=== PATIENT | female | born 1960 | race Caucasian/White ===

== ENCOUNTER → 2017-11-04 10:42 | Outpatient (CLI) | payer BC, SELFPAY ==
--- NOTE | 2017-11-04 10:47 | RAD_ITS ---
STUDY: X-RAY - RIGHT SHOULDER REASON FOR EXAM: Female, 57 years old. Chronic right shoulder and neck pain TECHNIQUE: 4 view(s) of the shoulder. COMPARISON: None. FINDINGS: Normal glenohumeral articulation. Normal acromioclavicular joint. Normal acromion. Normal humeral head and visualized proximal humerus. The soft tissue structures are unremarkable. Normal visualized pulmonary apex. RAD/Shoulder min 2 Views IMPRESSION: Normal x-ray examination of the shoulder. Electronically Signed: Bertrand Douglas MD at 19:17 EDT , Service support ,
--- NOTE | 2017-11-04 10:59 | RAD_ITS ---
STUDY: X-RAY - CERVICAL SPINE REASON FOR EXAM: Female, 57 years old. Chronic right shoulder and neck pain TECHNIQUE: 5 view(s) of the cervical spine were obtained. COMPARISON: None FINDINGS: Normal anterior atlantoaxial articulation. Normal odontoid process. Normal cervical lordosis. There is a 3 mm anterolisthesis of C6 relative to C5. There is moderately severe narrowing of the C5-6 disc space. There is narrowing of the left C3-4 and C5-6 intervertebral foramina. The soft tissue structures are unremarkable. RAD/Cerv Spine 4 or 5 Views IMPRESSION: Degenerative changes as detailed above. Electronically Signed: Bertrand Douglas MD at 17:47 EDT , Service support ,
== END ==
PROVIDERS: Visit Provider Nurse Practitioner
DX: M25.511 Pain in right shoulder (principal); M43.6 Torticollis
CPT/HCPCS: 72050; 73030

== ENCOUNTER → 2021-01-10 | Outpatient (CLI) | payer BC, SELFPAY ==
[2021-01-10 15:17] VITALS: BMI 21.4
[2021-01-10 23:37] LABS: ALB/GLOB Ratio 1.2 RATIO (0.9-2.4); AST(SGOT) 18 U/L (15-37); Alanine Aminotransfer ALT/SGPT 30 U/L (13-56); Albumin, Serum 3.7 g/dL (3.2-5.0); Alkaline Phosphatase 58 U/L (45-117); Anion Gap 6 (5-15); BUN 11 mg/dL (7-18); BUN/Creat Ratio 15.5 RATIO (10-20); Calcium,Total 8.7 mg/dL (8.5-10.1); Chloride 104 mmol/L (98-107); Creatinine, Serum 0.71 mg/dL (0.55-1.02); EST Glomerular Filtration Rate 90 mL/min (>60); Est Glom Filt Rate - Afr Amer 109 mL/min (>60); Glucose 148 mg/dL (74-106); Potassium 3.3 mmol/L (3.5-5.1); Protein, Total 6.7 g/dL (6.4-8.2); Sodium Level 139 mmol/L (136-145); Thyroid Stim Hormone (TSH) 0.83 uIU/mL (0.358-3.74)
[2021-01-10 23:51] LABS: Absolute Lymphocyte Count 1.53 X10^3/uL (0.83-4.51); Absolute Neutrophil Count 3.2 X10^3/uL (2.0-7.7); Basophil# 0.03 X10^3/uL; Basophil% 0.6 % (0-1); Eosinophil# 0.03 X10^3/uL; Eosinophils% 0.6 % (0-5); Hematocrit 44.1 % (37-47); Hemoglobin 14.2 g/dL (12.0-15.0); Lymphocyte # 1.53 X10^3/ul (0.83-4.51); Mean Corp Hgb Conc 32.2 g/dL (32-36); Mean Corpuscular Hgb 30.5 pg (27.0-32.0); Mean Corpuscular Volume 94.6 fL (81-99); Mean Platelet Vol. 10.8 fl (6.2-12.0); Monocyte# 0.45 X10^3/uL; Monocyte% 8.5 % (0-10); NRBC Flagged by Analyzer 0 % (0-5); Neutrophil % 60.5 % (47-70); Platelet Count 212 K/mm3 (150-450); RBC Distribution Width CV 12.9 % (11.6-14.6); RBC Distribution Width SD 44.9 fl (35.1-43.9); Red Blood Count 4.66 M/mm3 (4.2-5.4); White Blood Count 5.3 K/mm3 (4.4-11.0)
[2021-01-13 14:08] LABS: Endomysial Antibody IgA Negative (Negative)
[2021-01-13 14:49] LABS: Immunoglobulin A 140 mg/dL (87-352); t-Transglutaminase IgA <2 U/mL (0-3)
== END | disposition home or self-care (01) ==
PROVIDERS: PCP Nurse Practitioner; Referring Provider Nurse Practitioner; Visit Provider Nurse Practitioner
DX: K58.9 Irritable bowel syndrome, unspecified (principal); R19.7 Diarrhea, unspecified
CPT/HCPCS: 80053; 82784; 83516; 84443; 85025; 86255

== ENCOUNTER → 2021-03-11 | Outpatient (CLI) | payer BC, SELFPAY ==
[2021-03-11 14:51] VITALS: BMI 21.8
[2021-03-11 21:39] LABS: Absolute Lymphocyte Count 1.71 X10^3/uL (0.83-4.51); Absolute Neutrophil Count 4.5 X10^3/uL (2.0-7.7); Basophil# 0.03 X10^3/uL; Basophil% 0.4 % (0-1); Eosinophil# 0.14 X10^3/uL; Hematocrit 45.8 % (37-47); Hemoglobin 15.1 g/dL (12.0-15.0); Lymphocyte # 1.71 X10^3/ul (0.83-4.51); Mean Corpuscular Hgb 30.9 pg (27.0-32.0); Mean Corpuscular Volume 93.7 fL (81-99); Mean Platelet Vol. 10.9 fl (6.2-12.0); Monocyte# 0.75 X10^3/uL; Monocyte% 10.5 % (0-10); NRBC Flagged by Analyzer 0 % (0-5); Neutrophil # 4.48 X10^3/uL (2.7-7.7); Neutrophil % 62.8 % (47-70); Platelet Count 201 K/mm3 (150-450); RBC Distribution Width CV 12.3 % (11.6-14.6); RBC Distribution Width SD 42.8 fl (35.1-43.9); Red Blood Count 4.89 M/mm3 (4.2-5.4); White Blood Count 7.1 K/mm3 (4.4-11.0)
[2021-03-11 22:07] LABS: ALB/GLOB Ratio 1.1 RATIO (0.9-2.4); AST(SGOT) 25 U/L (15-37); Alanine Aminotransfer ALT/SGPT 31 U/L (13-56); Albumin, Serum 3.9 g/dL (3.2-5.0); Alkaline Phosphatase 68 U/L (45-117); Anion Gap 6 (5-15); BUN 13 mg/dL (7-18); BUN/Creat Ratio 19.2 RATIO (10-20); Calcium,Total 9.4 mg/dL (8.5-10.1); Chloride 105 mmol/L (98-107); Creatinine, Serum 0.68 mg/dL (0.55-1.02); EST Glomerular Filtration Rate 95 mL/min (>60); Est Glom Filt Rate - Afr Amer 115 mL/min (>60); Globulin 3.4 g/dL (2.2-4.2); Glucose 88 mg/dL (74-106); Potassium 3.6 mmol/L (3.5-5.1); Protein, Total 7.3 g/dL (6.4-8.2); Sodium Level 139 mmol/L (136-145)
== END | disposition home or self-care (01) ==
PROVIDERS: PCP Nurse Practitioner; Visit Provider Nurse Practitioner
DX: R10.32 Left lower quadrant pain (principal); R19.7 Diarrhea, unspecified
CPT/HCPCS: 80053; 85025

== ENCOUNTER → 2021-03-12 13:31 | Outpatient (CLI) | payer BC, SELFPAY ==
[2021-03-11 14:51] VITALS: BMI 21.8
[2021-03-15 12:07] LABS: H. PYLORI STOOL AG Negative (Negative)
[2021-03-15 12:54] LABS: Giardia Lamblia, Stool EIA Negative (Negative)
== END ==
LOC: LAB 11:24 → LABSPEC 13:31
PROVIDERS: PCP Nurse Practitioner; Visit Provider Nurse Practitioner
DX: R10.13 Epigastric pain (principal); R10.32 Left lower quadrant pain; R11.0 Nausea; R19.7 Diarrhea, unspecified
CPT/HCPCS: 82274; 83630; 87329; 87506

== ENCOUNTER → 2021-03-18 08:48 | Outpatient (CLI) | payer BC, SELFPAY ==
[2021-03-11 14:51] VITALS: BMI 21.8
--- NOTE | 2021-03-18 08:52 | CT_ITS ---
STUDY: CT ABDOMEN AND PELVIS WITH CONTRAST REASON FOR EXAM: Female, 60 years old. Diverticulitis ,LLQ pain,Epigastric abd pain -- Approval #[id number] RADIATION DOSAGE (If Supplied By Facility): CTDIvol = ( 16.61 ) mGy, DLP = ( 462.05 ) mGycm TECHNIQUE: Transaxial images were obtained from the dome of the diaphragm to the symphysis pubis with oral contrast. Oral and amp; IV Readi-CAT and amp; 100mL Isovue-300 was administered. Sagittal and coronal images were reconstructed. Individualized dose optimization techniques were used for this CT. COMPARISON: None. FINDINGS: Bullous changes and emphysema in the lower lobes. The visualized portions of the heart are within normal limits. There is decreased attenuation of the liver consistent with steatosis. Multiple small hepatic cysts. The largest cyst is in the left lobe of liver and measures 1.2 cm. Normal gallbladder and extrahepatic biliary system. Normal spleen. Normal pancreas. Normal bilateral adrenal glands. Normal right kidney. Normal left kidney. Normal visualized stomach. Normal small intestine. There are scattered colonic diverticula consistent with diverticulosis. There are surgical clips in the region of the appendix consistent with a prior appendectomy. There is scattered atherosclerotic calcification of the abdominal aorta, without a demonstrated aneurysm. Normal inferior vena cava. Normal retroperitoneum. Normal urinary bladder. Normal abdominal wall. Normal osseous structures. CT/Abdomen/Pelvis W IV Cont ONLY IMPRESSION: Scattered sigmoid diverticula. Electronically Signed: Arvind Munoz MD at 14:27 EDT , Service support ,
== END ==
PROVIDERS: PCP Nurse Practitioner; Referring Provider Nurse Practitioner; Visit Provider Nurse Practitioner
DX: K57.92 Diverticulitis of intestine, part unspecified, without perforation or abscess without bleeding (principal); R10.13 Epigastric pain; R10.32 Left lower quadrant pain
CPT/HCPCS: 74177; Q9967

== ENCOUNTER 2021-04-11 06:53 | Day surgery (SDC) | payer BC, SELFPAY ==
[2021-03-19 09:09] VITALS: BMI 20.4
[2021-04-11 07:24] VITALS: BP 136/87; PULSE 91; RESP 16; TEMP 37.1; O2SAT 99; BMI 21.7
[2021-04-11] MEDS: Lactated Ringers 1,000 ML 100 ML IV (07:28)
--- NOTE | 2021-04-11 07:54 | HP.PCM_ITS ---
History and Physical Date of Admission: 04/11/21 Intake Vital Signs 03/19/21 09:02 03/19/21 09:09 Height 5 ft 4 in Weight: 119 lb BMI 21.8 20.4 BP 120/83 H Blood Pressure Location Rt brachial Position Sitting Respiration 16 Intake Visit Reasons: Gerd/Abdominal Pain & Diarrhea Chief Complaint: diarrhea and abd pain Human Capital Analyst Required: No Is patient in pain?: Yes (RUQ abd) Allergies etodolac Allergy (Verified 03/19/21 09:10) Hives ANOTHER ONE I CAN'T REMEMBER Allergy (Uncoded 03/19/21 09:10) Hives Medications duloxetine 60 mg capsule,delayed release 60 mg PO DAILY #90 cap 12/03/20 [Rx Confirmed 03/19/21] dicyclomine 20 mg tablet 20 mg PO TID #90 tab 01/10/21 [Rx Confirmed 03/19/21] lansoprazole 30 mg capsule,delayed release 30 mg PO DAILY #90 cap 01/29/21 [Rx Confirmed 03/19/21] ciprofloxacin HCl 500 mg tablet 500 mg PO BID #20 tab 03/11/21 [Rx Confirmed 03/19/21] metronidazole 250 mg tablet 250 mg PO TID 10 Days #30 tab 03/11/21 [Rx Confirmed 03/19/21] promethazine 12.5 mg tablet 12.5 mg PO Q4H PRN #45 tab 03/11/21 [Rx Confirmed 03/19/21] methylprednisolone 4 mg tablets in a dose pack See Rx Instructions PO PER PKG DIR #21 tab 03/19/21 [Rx Confirmed 03/19/21] PFSH Medical History Bronchitis Depression Fibromyalgia Fx. left wrist IBS (irritable bowel syndrome) Seasonal allergies Family History (Updated 03/19/21 @ 09:08 by Yuli Gonzalez) Mother Hypertension Father Hypertension Colon cancer Brother Colon cancer Other Respiratory disease Social History (Updated 03/19/21 @ 09:08 by Yuli Gonzalez) Smoking Status: Current every day smoker alcohol intake: never HPI HPI HPI: SARIAH CODY, is a 60 F who presents to the office today for diarrhea and abdominal pain. The patient has been having over a week of diarrhea that did not respond to Cipro and Flagyl. The patient had a CT scan which was essentially normal. The patient was positive fecal occult blood. The patient reports that she does have a family history of colon cancer in her brother and her father. Patient reports pain in the epigastric and right upper quadrant. ROS General General: Yes weight change and fatigue; No appetite, colon cancer, breast cancer or weakness HEENT HEENT: No difficulty swallowing, eye injury, eye surgery, swollen glands or hoarseness Endo Endocrine: No thyroid disease, diabetes mellitus, thyroid cancer, Hair loss, heat intolerance or cold intolerance Skin Skin: No rash or changing moles Breast Breast: No left breast lump, right breast lump, nipple discharge, breast pain, abnormal mammogram, abnormal US or breast enlargement Musc Musculoskeletal: No back problems, arthritis, rheumatoid arthritis, gout or joint pain Cardio Cardiovascular: No murmur, pacemaker, heart disease, atrial fibrillation, high blood pressure, heart attack, heart stent, palpitations, shortness of breat with exertion or chest pain Psych Psychiatric: Yes depression and anxiety; No hearing voices Resp Respiratory: No shortness of breath, No sleep apnea, No cough, No COPD, No asthma, No emphysema and No wheezing Gastro Gastrointestinal: Yes abdominal pain, Yes nausea or vomiting, Yes diarrhea, No constipation, Yes blood in stool, Yes acid reflux, No hemorrhoids, No ulcers, No gallbladder problem and Yes black,tarry stools Gopi Hematologic: No blood thinners, No blood disorders, No bleeding, No anemia and No blood clots Neuro Neurologic: No system reviewed and no additional complaints, except as documented, No as per HPI, No abnormal gait, No abnormal hearing, No abnormal movements, No abnormal speech, No behavioral changes, No burning sensations, No confusion, No convulsions, No disequilibrium, No dizziness, No localized weakness, No frequent falls, No headache(s), No lack of coordination, No loss of vision, No memory loss, No numbness, No other visual disturbances, No radicular pain, No restless legs, No sensory deficit, No syncope, No tingling, No tremor(s), No weakness and No other Exam Const General: cooperative Orientation: alert and oriented x3 HENMT Head: normal to inspection Neck Neck: normal visual inspection and full ROM Chest Chest palpation & inspection: normal inspection of the chest Resp Effort & Inspection: normal respiratory effort Auscultation: clear to auscultation bilaterally Cardio Rate: regular rate Rhythm: regular rhythm GI Inspection: non-distended Palpation: soft and tender in the RUQ Skin General: no rashes or lesions noted Neuro General: patient alert and patient oriented x3 Extrem General: full ROM Psych Appearance: grossly normal Mental Status: mental status grossly normal Assessment and Plan Assessment and Plan (1) Diarrhea: Status: Acute Qualifiers: Diarrhea type: presumed infectious Qualified Code(s): R19.7 - Diarrhea, unspecified (2) Epigastric pain: Status: Acute (3) Positive fecal occult blood test: Status: Acute Orders: Orders: Colonoscopy Today R19.7 EGD Today R10.13, R19.5 Plan - Dr. Shadi Downs MD: Patient reports that she has been having diarrhea for over a week and this did not resolve on Cipro and Flagyl. CT was normal. The patient may be having microscopic colitis and the patient does have right upper quadrant pain and she is on a PPI. She also has a family history of colon cancer. I will perform an EGD and colonoscopy as the patient has also had positive fecal occult blood test. I will order her short Medrol Dosepak to see if steroids help at all and I will perform a colonoscopy with random biopsies of the colon to check for microscopic colitis. I explained endoscopy in detail to the patient. I explained the risks including but not limited to stroke or heart attack with anesthesia, perforation of the GI tract, bleeding, infection. I explained that any of these could necessitate further emergency surgery. The patient understands and all questions were answered sufficiently. The patient wishes to proceed with procedure. Shadi Downs MD Pager: [facility] [address] [place] [address] [address] [place] [address] Office: I have re-examined the patient. There are no clinical changes since date of exam.
--- NOTE | 2021-04-11 08:00 | COLBX_PTH ---
PATIENT: SARIAH CODY LOC: EN U#:[id number] AGE/SX: 60/F ROOM: RE04/11/[address]: Dr. Shadi Downs MD : 1960 BED: DIS: 04/11/2021 SPEC #: [id number] RECD: 04/11/21 10:50 STATUS: ROSA JUMA #: [id number] BULMARO: 04/11/21 08:[address]: Shadi Downs DEPT: SURGICAL PATHOLOGY RECD BY: Chanell Rivera ENTERED: 04/11/21 11:05 SP TYPE: COLON BX OTHR DR: Thelma Simmons, BOX CHIPPER-C Tissues: A - COLON BIOPSY B - Rectum, NOS Procedures: Surgery Specimen Level IV HEADER OPERATION: [place] [place] DIAGNOSIS: Diarrhea, epigastric pain, positive fecal occult blood test TISSUE SUBMITTED: A ? Random colon biopsies, B ? Rectal polyp MICROSCOPIC DIAGNOSIS A. Random colon biopsy: Lymphocytic colitis. See Comment. B. Rectal polyp, biopsy: Tubular adenoma. COMMENT A. Trichrome stain with matched control does not reveal a thickened basal plate. MICROSCOPIC DESCRIPTION Slides are reviewed. GROSS DESCRIPTION A - Received in fixative is one container labeled with the patient's name and designated random colon biopsy. The specimen consists of multiple irregular fragments of light bruno soft tissue that in aggregate measure 2 x 0.7 x 0.1 cm. The specimen is totally submitted in one cassette. B -Received in fixative is one container labeled with the patient's name and designated rectal polyp. The specimen consists of multiple irregular fragments of light bruno soft tissue that in aggregate measure 1.5 x 1 x 0.3 cm. The specimen is totally submitted in one cassette. / AM:daphney 04/11/2021 TC:5 CPT: 94593 x2, 88200
[2021-04-11 08:35] VITALS: BP 111/78; BP 136/87; PULSE 78; RESP 14; TEMP 36.3; O2SAT 99
--- NOTE | 2021-04-11 08:36 | OP.CCLET_ITS ---
04/11/2021 Thelma Simmons NP [facility] [address] [address] Re : Upper GI endoscopy procedure for Denia Bhagat Dear Ms. Simmons This procedure was performed on Sunday, April 11, 2021. My impressions and recommendations are as follows: Impressions : - Normal esophagus. - Normal stomach. - Normal examined duodenum. - No specimens collected. Recommendations : - Discharge patient to home. - Resume previous diet. - Continue present medications. My findings are described in the full procedure note, which is enclosed. If I can be of further assistance, please feel free to contact me at Doctor phone number(s): , Work: . Sincerely, Shadi Downs MD 04/11/2021 8:35:04 AM This report has been signed electronically.
--- NOTE | 2021-04-11 08:36 | OP.EGD_ITS ---
Patient Name: Denia Bhagat Procedure Date: 04/11/2021 8:00 AM Date of : 1960 Age: 60 Procedure: Upper GI endoscopy Indications: Occult blood in stool Providers: Shadi Downs MD Medicines: Monitored Anesthesia Care Patient Profile: This is a 60 year old female. Refer to note in patient chart for documentation of history and physical. Complications: No immediate complications. Procedure: Pre-Anesthesia Assessment: - Prior to the procedure, a History and Physical was performed, and patient medications and allergies were reviewed. The patient's tolerance of previous anesthesia was also reviewed. The risks and benefits of the procedure and the sedation options and risks were discussed with the patient. All questions were answered, and informed consent was obtained. Prior Anticoagulants: The patient has taken no previous anticoagulant or antiplatelet agents. After reviewing the risks and benefits, the patient was deemed in satisfactory condition to undergo the procedure. After obtaining informed consent, the endoscope was passed under direct vision. Throughout the procedure, the patient's blood pressure, pulse, and oxygen saturations were monitored continuously. The gastroscope was introduced through the mouth, and advanced to the third part of duodenum. The upper GI endoscopy was accomplished without difficulty. The patient tolerated the procedure well. Scope In: 8:10:54 AM Scope Out: 8:12:13 AM Total Procedure Duration Time 0 hours 1 minute 19 seconds Findings: The esophagus was normal. The stomach was normal. The examined duodenum was normal. Impression: - Normal esophagus. - Normal stomach. - Normal examined duodenum. - No specimens collected. Recommendation: - Discharge patient to home. - Resume previous diet. - Continue present medications. Procedure Code(s): --- Professional --- 47570, Esophagogastroduodenoscopy, flexible, transoral; diagnostic, including collection of specimen(s) by brushing or washing, when performed (separate procedure) Diagnosis Code(s): --- Professional --- R19.5, Other fecal abnormalities CPT copyright 2017 [employer]. All rights reserved. The codes documented in this report are preliminary and upon reclamation supervisor review may be revised to meet current compliance requirements. Shadi Downs MD 04/11/2021 8:35:04 AM This report has been signed electronically. Number of Addenda: 0 Note Initiated On: 04/11/2021 8:00 AM
--- NOTE | 2021-04-11 08:37 | OP.COLON_ITS ---
Patient Name: Denia Bhagat Procedure Date: 04/11/2021 8:13 AM Date of : 1960 Age: 60 Procedure: Colonoscopy Indications: Chronic diarrhea, Heme positive stool Providers: Shadi Downs MD Medicines: Monitored Anesthesia Care Patient Profile: This is a 60 year old female. Refer to note in patient chart for documentation of history and physical. Last Colonoscopy: date unknown. Complications: No immediate complications. Estimated blood loss: Minimal. Procedure: Pre-Anesthesia Assessment: - Prior to the procedure, a History and Physical was performed, and patient medications and allergies were reviewed. The patient's tolerance of previous anesthesia was also reviewed. The risks and benefits of the procedure and the sedation options and risks were discussed with the patient. All questions were answered, and informed consent was obtained. Prior Anticoagulants: The patient has taken no previous anticoagulant or antiplatelet agents. After reviewing the risks and benefits, the patient was deemed in satisfactory condition to undergo the procedure. After I obtained informed consent, the scope was passed under direct vision. Throughout the procedure, the patient's blood pressure, pulse, and oxygen saturations were monitored continuously. The pediatric colonoscope was introduced through the anus and advanced to the cecum, identified by appendiceal orifice and ileocecal valve. The colonoscopy was performed without difficulty. The patient tolerated the procedure well. The quality of the bowel preparation was good. Scope In: 8:15:26 AM Scope Withdrawal Time 0 hours 6 minutes 5 seconds Scope Out: 8:30:03 AM Total Procedure Duration Time 0 hours 14 minutes 37 seconds Findings: A polyp was found in the rectum. The polyp was removed with a hot snare. Resection and retrieval were complete. The entire examined colon appeared normal on direct and retroflexion views. Biopsies for histology were taken with a cold forceps from the entire colon for evaluation of microscopic colitis. Impression: - One polyp in the rectum, removed with a hot snare. Resected and retrieved. - The entire examined colon is normal on direct and retroflexion views. - Biopsies were taken with a cold forceps from the entire colon for evaluation of microscopic colitis. Recommendation: - Discharge patient to home. - Resume previous diet. - Continue present medications. - Await pathology results. - Repeat colonoscopy in 5 years for surveillance based on pathology results. Procedure Code(s): --- Professional --- 53231, Colonoscopy, flexible; with removal of tumor(s), polyp(s), or other lesion(s) by snare technique 15388, 59, Colonoscopy, flexible; with biopsy, single or multiple Diagnosis Code(s): --- Professional --- K62.1, Rectal polyp K52.9, Noninfective gastroenteritis and colitis, unspecified R19.5, Other fecal abnormalities CPT copyright 2017 [employer]. All rights reserved. The codes documented in this report are preliminary and upon tire center manager review may be revised to meet current compliance requirements. Shadi Downs MD 04/11/2021 8:37:22 AM This report has been signed electronically. Number of Addenda: 0 Note Initiated On: 04/11/2021 8:13 AM
--- NOTE | 2021-04-11 08:38 | OP.CCLET_ITS ---
04/11/2021 Thelma Simmons NP [facility] [address] [place] [id number] Re : Colonoscopy procedure for Denia Bhagat Dear Ms. Simmons This procedure was performed on Sunday, April 11, 2021. My impressions and recommendations are as follows: Impressions : - One polyp in the rectum, removed with a hot snare. Resected and retrieved. - The entire examined colon is normal on direct and retroflexion views. - Biopsies were taken with a cold forceps from the entire colon for evaluation of microscopic colitis. Recommendations : - Discharge patient to home. - Resume previous diet. - Continue present medications. - Await pathology results. - Repeat colonoscopy in 5 years for surveillance based on pathology results. My findings are described in the full procedure note, which is enclosed. If I can be of further assistance, please feel free to contact me at Doctor phone number(s): , Work: . Sincerely, Shadi Downs MD 04/11/2021 8:37:22 AM This report has been signed electronically.
[2021-04-11 08:40] VITALS: BP 116/73; BP 136/87; PULSE 70; RESP 16; O2SAT 100
[2021-04-11 08:45] VITALS: BP 116/73; BP 136/87; PULSE 73; RESP 16; O2SAT 98
[2021-04-11 08:50] VITALS: BP 118/80; BP 136/87; PULSE 72; RESP 16; TEMP 36.2; O2SAT 100
[2021-04-11 09:00] VITALS: BP 136/87
== END 2021-04-11 09:07 ==
LOC: EN 06:54 → AC 06:57
PROVIDERS: PCP Nurse Practitioner; Referring Provider Nurse Practitioner; Visit Provider Surgery
PROC: 0DJD8ZZ Inspection of Lower Intestinal Tract, Via Natural or Artificial Opening Endoscopic (ICD-10-PCS; CPT 45378; principal; 2021-04-11 07:55)
DX: K62.1 Rectal polyp (principal); K52.9 Noninfective gastroenteritis and colitis, unspecified; R19.5 Other fecal abnormalities; Z80.0 Family history of malignant neoplasm of digestive organs; F17.200 Nicotine dependence, unspecified, uncomplicated; K21.9 Gastro-esophageal reflux disease without esophagitis
CPT/HCPCS: 43235; 45380; 45385; 88305; J7120; J2405

== ENCOUNTER 2021-11-24 21:18 | Outpatient (CLI) | payer BC, SELFPAY | END 2021-11-24 23:59 | disposition home or self-care (01) | PROVIDERS: PCP Nurse Practitioner; Visit Provider Nurse Practitioner | DX: N30.90 Cystitis, unspecified without hematuria (principal) | CPT/HCPCS: 87077; 87086; 87088; 87186 ==

== ENCOUNTER 2021-12-31 08:24 | Emergency (ER) | payer BC, SELFPAY ==
[2021-12-31 08:25] VITALS: BP 155/90; PULSE 126; RESP 18; TEMP 36.4; O2SAT 98
--- NOTE | 2021-12-31 08:46 | RAD_ITS ---
INDICATION: Cough, shortness of breath, COVID-positive December 17 EXAMINATION/TECHNIQUE: X-RAY - XR Chest 2 Views COMPARISON: None. FINDINGS: Support devices: None. There are some faint streaky opacities in the bilateral lower lobes, predominantly in the periphery. No focal consolidations, sizable pleural effusion, or sizable pneumothorax. Cardiomediastinal silhouette is within normal limits. No acute findings in the bones or soft tissues. RAD/Chest PA and Lateral IMPRESSION: Faint streaky opacities in the bilateral lower lobes, predominantly in the peripheries can be seen with atelectasis or pneumonia, such as Covid pneumonia. Electronically Signed: Kyle Gerard, at 9:47 EDT ,
--- NOTE | 2021-12-31 08:46 | EX.ED.DYSGE1 ---
HPI History of Present Illness Chief Complaint: General Illness Detail of Chief Complaint: Not feeling well Informant: patient Onset/Context/Timing Onset: Weeks (Approximately 2 weeks) Context: Sudden Onset Timing: Continuous Quality: Malaise, not normal self and burning chest pain with breathing Current Severity: Mild Maximum Severity: Moderate Worsened by: Nothing Relieved by: Nothing Associated Symptoms Associated Symptoms: Not feeling well Narrative Narrative: Patient is a 61-year-old woman who is a smoker. She states she has smoked very little in the last couple of days. She presents because she does not feel well and feels she should feel much better since she was diagnosed with COVID 2 weeks ago. She denies documented fever. She does report intermittent chills. She does endorse intermittent aches. She denies headache, visual, ocular auditory symptoms. She does report mild nasal congestion. She denies loss of taste or smell. She denies dyspnea on exertion, orthopnea or PND. The chest discomfort was with breathing. It is not pleuritic. Her cough is essentially nonproductive. She has no GI symptoms. She has no urologic symptoms. She has no neurologic symptoms. She denies history of PE or DVT. She denies leg pain, swelling or discoloration. Prior similar symptoms: Yes Recent Illness/Hospitalization: Yes (Positive COVID test December 17, 2021) PFSH PFSH Medical History Bronchitis Colitis Depression Easy bruising Fibromyalgia Fx. left wrist Gastric reflux History of GI bleed History of IBS IBS (irritable bowel syndrome) Restless legs Seasonal allergies Smoker Home Medications dicyclomine 20 mg PO TID PRN PRN 04/08/21 [History Last Taken Unknown] fexofenadine [No] 180 mg PO DAILY 04/08/21 [History Last Taken Unknown] lansoprazole 30 mg PO DAILY 04/08/21 [History Last Taken 04/11/21 05:45] mesalamine 500 mg capsule,controlled release 1,000 mg PO TID #180 cap 04/18/21 [Rx Last Taken Unknown] duloxetine 60 mg capsule,delayed release 60 mg PO DAILY #30 cap 11/24/21 [Rx Last Taken Unknown] clarithromycin 500 mg tablet 500 mg PO BID #20 tab 12/29/21 [Rx Last Taken Unknown] Allergy/AdvReac Type Severity Reaction Status Date / Time etodolac Allergy Hives Verified 12/31/21 08:25 ANOTHER ONE I CAN'T Allergy Hives Uncoded 12/31/21 08:25 REMEMBER Family History Mother Hypertension Father Hypertension Colon cancer Brother Colon cancer Other Respiratory disease Surgical History (Reviewed 11/25/21 @ 10:51 by Thelma Simmons CABLE INSTALLER REPAIRER HELPER, CABLE INSTALLER REPAIRER HELPER-C) History of appendectomy History of colonoscopy History of endometrial ablation Social History (Updated 12/31/21 @ 08:[address] Cesar Moreno MD) household members: none Smoking Status: Current every day smoker tobacco type: cigarettes alcohol intake: never substance use type: does not use ROS ROS ED Constitutional Constitutional ED: Reports chills, fever(s) and subjective; Denies sweats or weight loss Eyes Eyes: Denies blurry vision, change in vision or diplopia ENT ENT ED: Reports rhinorrhea; Denies ear pain or sore throat Cardiovascular Cardiovascular: Reports chest pain; Denies orthopnea, palpitations, paroxysmal nocturnal dyspnea or racing heartbeat Respiratory/Chest Respiratory/Chest: Reports cough and sputum; Denies dyspnea, dyspnea on exertion, orthopnea or paroxysmal nocturnal dyspnea Gastrointestinal Gastrointestinal: Denies abdominal pain, diarrhea, melena, nausea or vomiting Genitourinary Genitourinary ED: Denies dysuria, hematuria or urinary frequency Musculoskeletal Musculoskeletal: Reports arthralgias and myalgias; Denies back pain or neck pain Integumentary Denies rash Neurologic Neurologic: Reports weakness; Denies headache(s) or paresthesias Endocrine Endocrinology: Denies polydipsia, polyphagia or polyuria Hematologic/Lymphatic Hematologic/Lymphatic: Denies anemia, easy bleeding or easy bruising EXAM Physical Exam Const Vital Signs: 12/31/21 08:25 12/31/21 08:58 Temperature 97.6 F L Temperature Source Temporal Pulse Rate 126 H Respiratory Rate 18 Respiratory Pattern Normal Blood Pressure 155/90 H Blood Pressure Mean 111 Pulse Ox 98 Oxygen Delivery Method Room Air Positive well nourished and well developed General Appearance ED: well developed and NAD; Negative for cyanotic, diaphoretic or pallor HEENT Reports TM's clear and moist mucous membranes HEENT Narrative: Nares patent. No drainage noted. Uvula is midline. There is no erythema or exudate. Negative for trauma or tenderness Tympanic Membrane ED: Yes TM's clear Eyes PERRL and EOMs intact bilaterally General Eye ED: Negative for pale conjunctiva or scleral icterus Neck no lymphadenopathy, supple and no JVD Neck Narrative: Trachea is midline. There is no in-store expiratory stridor. Resp normal respiratory effort and No clear to auscultation bilaterally Effort and Inspection: Negative for retractions or pain with movement Auscultation: rales bilateral base; Negative for rhonchi, wheezes or diminished lung sounds Cardio regular rhythm, S1 normal heart sound, S2 normal heart sound and no murmurs Rate: tachycardic GI normal to inspection, nondistended, normoactive bowel sounds, non-tender and non-distended Palpation: soft Back/Spine no CVA tenderness Cervical Spine: Negative for cervical spine tenderness Thoracic Spine / Upper Back: Negative for thoracic spinal tenderness or paraspinal muscle tenderness Lumbar Spine / Lower Back: Negative for lumbar spinal tenderness Extremity normal to inspection Extremity Narrative: There is no asymmetry, swelling, discoloration, leg vein distention, palpable cords or tenderness along the distribution of the deep venous system. General Extremety ED: Negative for edema or tenderness General Extremity: Negative for edema Neuro oriented x3, CN's II-XII intact bilaterally and no sensory deficits noted Sensorium / Orientation: alert Motor Exam: strength 5/5 throughout Psych mental status grossly normal Skin no rashes or lesions noted and no wounds General Skin Exam: Negative for jaundice or pallor MDM MDM MDM Narrative Medical decision making narrative: Patient presents with symptoms consistent with COVID infection. Since she has bilateral rales will obtain chest x-ray to evaluate for infiltrate. CBC to rule out anemia and determine white count. BMP to assess electrolytes and renal function Lab Data Attestation: I reviewed the patient's lab results. Lab results narrative: Patient's hemoglobin is higher than baseline. This may represent polycythemia vera versus dehydration. Suspect the later since her BUN to creatinine ratio is elevated. Labs: Laboratory Results - last 24 hr 12/31/21 12/31/21 08:50 08:50 WBC 5.8 RBC 5.26 Hgb 16.0 H Hct 48.1 H MCV 91.4 MCH 30.4 MCHC 33.3 RDW Std Deviation 41.1 RDW Coeff of Alicia 12.4 Plt Count 242 MPV 10.3 Immature Gran % (Auto) 1.000 H Neut % (Auto) 57.6 Lymph % (Auto) 27.3 George % (Auto) 12.0 H Eos % (Auto) 1.9 Baso % (Auto) 0.2 Absolute Neuts (auto) 3.3 Absolute Lymphs (auto) 1.57 Nucleated RBC % 0 Sodium 139 Potassium 3.2 L Chloride 103 Carbon Dioxide 32.0 Anion Gap 4 L BUN 18 Creatinine 0.71 Estim Creat Clear Calc 3.05 Est GFR (MDRD) Af Amer 109 Est GFR (MDRD) Non-Af 90 BUN/Creatinine Ratio 25.5 H Glucose 118 H Calcium 9.1 Radiography Chest X-Ray - ED: 2 View and Read by ED Physician (And independently interpreted by me at 0911. Hyperaeration. Chronic changes. Cardiac silhouette and size normal. Perihilar region unremarkable. Osseous structures are unremarkable. There is no evidence of pneumothorax.) Discharge Plan Triage Chief Complaint: General Illness ED Provider: Cesar Moreno Dx/Rx/DC Orders Clinical Impression: COVID-19 virus infection, Acute prerenal azotemia Instructions: Coronavirus Disease 2019 (COVID-19): Overview, Coronavirus Disease 2019 (COVID-19): Caring for Yourself or Others Prescriptions: No Action duloxetine 60 mg capsule,delayed release(DR/EC) 60 mg PO DAILY Qty: 30 RF: 12 fexofenadine [No] 180 mg Tablet 180 mg PO DAILY RF: 0 dicyclomine 20 mg tablet 20 mg PO TID PRN PRN (Reason: Diarrhea) RF: 0 lansoprazole 30 mg capsule,delayed release(DR/EC) 30 mg PO DAILY RF: 0 mesalamine 500 mg capsule, extended release 1,000 mg PO TID Qty: 180 RF: 1 clarithromycin 500 mg tablet 500 mg PO BID Qty: 20 RF: 0 Primary Care Provider: Thelma Simmons NP Referrals: Thelma Simmons NP, CABLE INSTALLER REPAIRER HELPER-C [Primary Care Provider] - 10-14 Days if not better Disposition Disposition: Home, Self Care
[2021-12-31 09:01] LABS: Absolute Lymphocyte Count 1.57 X10^3/uL (0.83-4.51); Absolute Neutrophil Count 3.3 X10^3/uL (2.0-7.7); Basophil# 0.01 X10^3/uL; Basophil% 0.2 % (0-1); Eosinophil# 0.11 X10^3/uL; Eosinophils% 1.9 % (0-5); Hematocrit 48.1 % (37-47); Lymphocyte # 1.57 X10^3/ul (0.83-4.51); Lymphocyte % 27.3 % (19-41); Mean Corp Hgb Conc 33.3 g/dL (32-36); Mean Corpuscular Hgb 30.4 pg (27.0-32.0); Mean Corpuscular Volume 91.4 fL (81-99); Mean Platelet Vol. 10.3 fl (6.2-12.0); Monocyte# 0.69 X10^3/uL; NRBC Flagged by Analyzer 0 % (0-5); Neutrophil # 3.32 X10^3/uL (2.7-7.7); Neutrophil % 57.6 % (47-70); Platelet Count 242 K/mm3 (150-450); RBC Distribution Width CV 12.4 % (11.6-14.6); RBC Distribution Width SD 41.1 fl (35.1-43.9); Red Blood Count 5.26 M/mm3 (4.2-5.4); White Blood Count 5.8 K/mm3 (4.4-11.0)
[2021-12-31 09:10] LABS: Anion Gap 4 (5-15); BUN 18 mg/dL (7-18); BUN/Creat Ratio 25.5 RATIO (10-20); Calcium,Total 9.1 mg/dL (8.5-10.1); Chloride 103 mmol/L (98-107); Creatinine, Serum 0.71 mg/dL (0.55-1.02); EST Glomerular Filtration Rate 90 mL/min (>60); Est Glom Filt Rate - Afr Amer 109 mL/min (>60); Estimated Creatinine Clearance 3.05 ml/min; Glucose 118 mg/dL (74-106); Potassium 3.2 mmol/L (3.5-5.1); Sodium Level 139 mmol/L (136-145)
[2021-12-31 09:20] VITALS: BP 138/58; PULSE 75; RESP 16; O2SAT 97
== END 2021-12-31 09:21 | disposition home or self-care (01) ==
PROVIDERS: Emergency Provider Emergency Medicine; PCP Nurse Practitioner; Visit Provider Emergency Medicine
DX: U07.1 COVID-19 (principal); R79.89 Other specified abnormal findings of blood chemistry; M79.7 Fibromyalgia; K21.9 Gastro-esophageal reflux disease without esophagitis; F17.210 Nicotine dependence, cigarettes, uncomplicated; Z79.899 Other long term (current) drug therapy
CPT/HCPCS: 71046; 80048; 85025; 99282

== ENCOUNTER → 2022-11-24 | Outpatient (CLI) | payer BC, SELFPAY ==
[2022-11-24 21:18] LABS: Absolute Lymphocyte Count 0.98 X10^3/uL (0.83-4.51); Absolute Neutrophil Count 1.6 X10^3/uL (2.0-7.7); Basophil# 0.01 X10^3/uL; Basophil% 0.3 % (0-1); Eosinophil# 0.05 X10^3/uL; Eosinophils% 1.6 % (0-5); Hematocrit 45.1 % (37-47); Hemoglobin 14.8 g/dL (12.0-15.0); Lymphocyte # 0.98 X10^3/ul (0.83-4.51); Mean Corp Hgb Conc 32.8 g/dL (32-36); Mean Corpuscular Hgb 30.2 pg (27.0-32.0); Mean Platelet Vol. 10.7 fl (6.2-12.0); Monocyte# 0.42 X10^3/uL; Monocyte% 13.7 % (0-10); NRBC Flagged by Analyzer 0 % (0-5); Neutrophil % 52.4 % (47-70); Platelet Count 186 K/mm3 (150-450); RBC Distribution Width CV 12.6 % (11.6-14.6); RBC Distribution Width SD 42.6 fl (35.1-43.9); White Blood Count 3.1 K/mm3 (4.4-11.0)
[2022-11-24 21:32] LABS: ALB/GLOB Ratio 1.1 RATIO (0.9-2.4); AST(SGOT) 16 U/L (15-37); Alanine Aminotransfer ALT/SGPT 21 U/L (13-56); Albumin, Serum 3.5 g/dL (3.2-5.0); Alkaline Phosphatase 70 U/L (45-117); Anion Gap 1 (5-15); BUN 6 mg/dL (7-18); BUN/Creat Ratio 9.7 RATIO (10-20); Calcium,Total 8.8 mg/dL (8.5-10.1); Chloride 109 mmol/L (98-107); Creatinine, Serum 0.62 mg/dL (0.55-1.02); EST Glomerular Filtration Rate 105 mL/min (>60); Est Glom Filt Rate - Afr Amer 127 mL/min (>60); Globulin 3.1 g/dL (2.2-4.2); Glucose 99 mg/dL (74-106); Potassium 3.4 mmol/L (3.5-5.1); Protein, Total 6.6 g/dL (6.4-8.2); Sodium Level 139 mmol/L (136-145)
== END | disposition home or self-care (01) ==
PROVIDERS: PCP Nurse Practitioner; Visit Provider Nurse Practitioner
DX: J06.9 Acute upper respiratory infection, unspecified (principal); R05.9 Cough, unspecified; U09.9 Post COVID-19 condition, unspecified
CPT/HCPCS: 80053; 85025

== ENCOUNTER → 2022-11-25 | Outpatient (CLI) | payer BC, SELFPAY ==
--- NOTE | 2022-11-25 09:15 | RAD_ITS ---
STUDY: X-RAY CHEST REASON FOR EXAM: Female, 62 years old. Cough. History of COVID 19 infection one month ago. Persistent terrible cough. TECHNIQUE: PA and lateral views of the chest. COMPARISON: December 31, 2021 FINDINGS: The lungs are mildly hyperexpanded. There is no new mass or infiltrate. No pneumothorax. There is no demonstrated pleural abnormality. Normal size heart. Normal mediastinum and gavin. Normal visualized pulmonary arteries. Normal visualized aortic arch and descending thoracic aorta. There are diffuse degenerative changes of the visualized thoracic spine. Normal visualized ribs, clavicles, and shoulders. There is no demonstrated abnormality of the visualized soft tissue structures of the upper abdomen. RAD/Chest PA and Lateral IMPRESSION: Degenerative changes, as described above. No demonstrated acute cardiopulmonary process. No major interval change. Electronically Signed: hSayne Reveles DO at 17:21 EDT ,
== END | disposition home or self-care (01) ==
LOC: RAD 09:12
PROVIDERS: PCP Nurse Practitioner; Visit Provider Nurse Practitioner
DX: R05.9 Cough, unspecified (principal); J06.9 Acute upper respiratory infection, unspecified
CPT/HCPCS: 71046

== ENCOUNTER 2023-04-02 18:11 | Emergency (ER) | payer OTHER, BC, SELFPAY ==
[2023-04-02 18:12] VITALS: BP 140/99; PULSE 80; RESP 16; TEMP 36.7; O2SAT 99; BMI 21.7
--- NOTE | 2023-04-02 18:14 | ED.RN ---
[facility] coming here. also started FROI and has with her
--- NOTE | 2023-04-02 18:34 | RAD_ITS ---
INDICATION: blunt trauma EXAMINATION/TECHNIQUE: X-RAY - LEFT XR Foot Min 3 Views 3 VIEWS COMPARISON: None. FINDINGS: SOFT TISSUES: No soft tissue swelling or gas. No radiopaque foreign body. BONES/JOINTS: No acute fracture. Joint spaces anatomically aligned. No sclerotic or destructive changes observed. RAD/Foot min 3 Views IMPRESSION: No acute findings. Electronically Signed: Juan M Bhatia MD at 19:18 EDT ,
--- NOTE | 2023-04-02 18:43 | ED.VIS.LOWEX ---
HPI History of Present Illness Chief Complaint: Lower Extremity Injury Narrative Narrative: Patient presents with left foot pain. Yesterday, at work, patient dropped a tour converter for [employer] truck on the top of her left foot. She was wearing boots. Is just been sore ever since. She is able to bear weight. No history of brittle or abnormal bone structure. No blood thinners. PFSH PFSH Medical History Bronchitis Colitis Depression Easy bruising Fibromyalgia Fx. left wrist Gastric reflux History of GI bleed History of IBS IBS (irritable bowel syndrome) Restless legs Seasonal allergies Smoker Home Medications fexofenadine 180 mg tablet 180 mg PO DAILY seasonal allergies 04/08/21 [History Last Taken Unknown] albuterol sulfate 90 mcg/actuation aerosol inhaler (Ventolin HFA) 2 puff inhalation Q4H PRN asthma #8.5 grams 12/31/21 [Rx Last Taken Unknown] duloxetine 60 mg capsule,delayed release 60 mg PO DAILY fibromyalgia #90 caps 10/19/22 [Rx Last Taken Unknown] mesalamine 500 mg capsule,extended release 1,000 mg PO ONCE 10/19/22 [History Last Taken Unknown] clarithromycin 500 mg tablet 500 mg PO BID #20 tabs 11/24/22 [Rx Last Taken Unknown] prednisone 20 mg tablet 40 mg (2 x 20 mg) PO DAILY #20 tabs 11/24/22 [Rx Last Taken Unknown] Allergy/AdvReac Type Severity Reaction Status Date / Time etodolac Allergy Hives Verified 04/02/23 18:12 amoxicillin [From Augmentin] AdvReac Severe N&V Verified 04/02/23 18:12 clavulanic acid AdvReac Severe N&V Verified 04/02/23 18:12 [From Augmentin] Family History Mother Hypertension Father Hypertension Colon cancer Brother Colon cancer Other Respiratory disease Surgical History History of appendectomy History of colonoscopy History of endometrial ablation Social History household members: none Smoking Status: Current every day smoker tobacco type: cigarettes alcohol intake: never substance use type: does not use ROS ROS ED Constitutional Constitutional ED: Denies chills or fever(s) Cardiovascular Cardiovascular: Denies chest pain or palpitations Respiratory/Chest Respiratory/Chest: Denies cough or dyspnea Gastrointestinal Gastrointestinal: Denies nausea or vomiting Musculoskeletal Musculoskeletal: Reports arthralgias Integumentary Denies Abrasions or rash Hematologic/Lymphatic Hematologic/Lymphatic: Denies easy bleeding or easy bruising Allergic/Immunologic Allergic/Immunologic ED: Denies urticaria EXAM Physical Exam Narrative Exam Narrative: Patient awake alert no acute distress sitting comfortably in bed. HEENT shows no trauma Cardiorespiratory shows easy unlabored breathing and normal saturations at 99% on room air. Extremities show possibly a small amount of swelling in the lateral midfoot. Mild tenderness but no deformity. Ankle calcaneus and Achilles are completely normal. Const Vital Signs: 04/02/23 18:12 Temperature 98.1 F Temperature Source Temporal Pulse Rate 80 Respiratory Rate 16 Blood Pressure 140/99 H Blood Pressure Mean 112 Pulse Ox 99 Oxygen Delivery Method Room Air MDM MDM MDM Narrative Medical decision making narrative: Plan up and interpretation the patient's three-view x-ray of the left foot shows no sign of fracture. Final reading is similar. Radiography Diagnostic Testing: Clinical Impression(s) from Imaging Studies Foot X-Ray 04/02/23 18:34 IMPRESSION: No acute findings. Electronically Signed: Juan M Bhatia MD at 19:18 EDT Reading Location ID and State: [facility] [place] Tel , Service support , Discharge Plan Triage Chief Complaint: Lower Extremity Injury ED Provider: Paramjit Navarro Dx/Rx/DC Orders Clinical Impression: Contusion of foot, left Instructions: ED Foot Contusion Prescriptions: No Action mesalamine 500 mg capsule, extended release 1,000 mg PO ONCE duloxetine 60 mg capsule,delayed release(DR/EC) 60 mg PO DAILY Qty: 90 3RF clarithromycin 500 mg tablet 500 mg PO BID Qty: 20 0RF prednisone 20 mg tablet 40 mg PO DAILY Qty: 20 0RF fexofenadine [No] 180 mg Tablet 180 mg PO DAILY albuterol sulfate [Ventolin HFA] 90 mcg/actuation HFA aerosol inhaler 2 puff inhalation Q4H PRN (Reason: asthma) Qty: 8.5 12RF Primary Care Provider: Thelma Simmons NP Referrals: Thelma Simmons ORTHOPEDIC NURSE PRACTITIONER, ORTHOPEDIC NURSE PRACTITIONER-C [Primary Care Provider] - 3-5 Days if not improving Disposition Disposition: Home, Self Care
[2023-04-02 20:26] VITALS: PULSE 80; RESP 18; O2SAT 96
== END 2023-04-02 20:27 | disposition home or self-care (01) ==
PROVIDERS: Emergency Provider Emergency Medicine; PCP Nurse Practitioner; Visit Provider Emergency Medicine
DX: S90.32XA Contusion of left foot, initial encounter (principal); W20.8XXA Other cause of strike by thrown, projected or falling object, initial encounter; Y99.0 Civilian activity done for income or pay; F17.210 Nicotine dependence, cigarettes, uncomplicated; Z79.899 Other long term (current) drug therapy
CPT/HCPCS: 73630; 99282

== ENCOUNTER → 2023-08-19 | Outpatient (CLI) | payer BC, SELFPAY ==
--- NOTE | 2023-08-19 09:43 | RAD_ITS ---
STUDY: X-RAY - RIGHT KNEE REASON FOR EXAM: Female, 62 years old. traumatic fal down carpted steps x4 twisted TECHNIQUE: 4 view(s) of the knee. COMPARISON: None. FINDINGS: Normal visualized distal femur. Normal visualized proximal tibia and fibula. Normal proximal tibiofibular articulation. Normal medial femorotibial compartment. Narrowed lateral femorotibial compartment with minor spurring of the lateral femoral and tibial condyles. Normal patellofemoral articulation. The soft tissue structures are unremarkable. RAD/Knee 4 or More Views IMPRESSION: Mild degenerative change. No acute fracture or dislocation. Electronically Signed: Lang Jean MD at 17:10 EST ,
== END | disposition home or self-care (01) ==
LOC: RAD 09:42
PROVIDERS: PCP Nurse Practitioner; Referring Provider Nurse Practitioner; Visit Provider Nurse Practitioner
DX: M25.461 Effusion, right knee (principal)
CPT/HCPCS: 73564

== ENCOUNTER 2024-03-03 20:51 | Emergency (ER) | payer OTHER, SELFPAY ==
[2024-03-03 20:51] VITALS: BP 147/89; PULSE 85; RESP 14; TEMP 36.1; O2SAT 97; BMI 20.8
--- NOTE | 2024-03-03 21:24 | EDS_ITS ---
HPI History of Present Illness Chief Complaint: Upper Extremity Injury Informant: patient Narrative Narrative: 63-year-old female who was hurt at work tonight and presents for evaluation of her injury. 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 She states the index finger is feeling fine now is really just the middle finger she is having trouble bending. PFSH PFSH Medical History Osteoarthritis of right knee Synovial cyst of popliteal space [Serra], right knee Colitis Easy bruising Restless legs History of GI bleed History of IBS Gastric reflux Smoker IBS (irritable bowel syndrome) Fx. left wrist Bronchitis Fibromyalgia Depression Seasonal allergies Home Medications ?Medication ?Instructions ?Recorded ?Last Taken ?Type fexofenadine 180 mg tablet 180 mg PO DAILY seasonal allergies 04/08/21 Unknown History mesalamine 500 mg capsule,extended 1,000 mg PO ONCE 10/19/22 Unknown History release cefdinir 300 mg capsule 300 mg PO BID #20 caps 01/24/24 Unknown Rx celecoxib 100 mg capsule 100 mg PO BID #60 caps 01/24/24 Unknown Rx cyclobenzaprine 5 mg tablet 5 mg PO TID PRN muscle spasm #45 01/24/24 Unknown Rx tabs levalbuterol tartrate 45 2 inh inhalation Q6H #15 grams 01/24/24 Unknown Rx mcg/actuation aerosol inhaler venlafaxine 150 mg 150 mg PO DAILY #30 caps 01/24/24 Unknown Rx capsule,extended release 24 hr (Effexor XR) Allergy/AdvReac Type Severity Reaction Status Date / Time etodolac Allergy Hives Verified 03/03/24 20:52 amoxicillin (From Augmentin) AdvReac Severe N&V Verified 03/03/24 20:52 clavulanic acid (From AdvReac Severe N&V Verified 03/03/24 20:52 Augmentin) Family History Mother Hypertension Father Hypertension Colon cancer Brother Colon cancer Other Respiratory disease Surgical History History of colonoscopy History of endometrial ablation History of appendectomy Social History household members: none Smoking Status: Current every day smoker tobacco type: cigarettes alcohol intake: never substance use type: does not use ROS ROS ED Constitutional Constitutional ED: Denies chills or fever(s) Musculoskeletal Musculoskeletal: Reports extremity pain; Denies neck pain Integumentary Denies Abrasions, rash or wounds Neurologic Neurologic: Denies paresthesias or weakness EXAM Physical Exam Const Vital Signs: 03/03/24 20:51 Temperature 97 F L Temperature Source Temporal Pulse Rate 85 Respiratory Rate 14 Blood Pressure 147/89 H Blood Pressure Mean 108 Pulse Ox 97 Oxygen Delivery Method Room Air Positive well nourished and well developed General Appearance ED: well developed and NAD Neck full ROM and supple Back/Spine normal ROM and normal to inspection Extremity Extremity Narrative: There is a trigger finger in the left index finger but she can move it fully without any difficulty and there is no tenderness or swelling or bruising or subungual hematoma. With regards to the left middle finger, there is ecchymosis and swelling and tenderness about the DIPJ, the PIPJ is more tender, she is able to extend, she is able to flex the FDP and FDS although limited range of motion with regards to both due to pain, and there is no subungual hematoma but the distal phalanx is tender as well. No other areas of trauma or tenderness in this hand. Neuro oriented x3, no focal motor deficits and no sensory deficits noted Sensorium / Orientation: alert Psych mental status grossly normal and thought process normal Skin no wounds Rashes: no rashes MDM MDM MDM Narrative Medical decision making narrative: Three-view x-ray series of the left hand on my interpretation show what appears to be a chip fracture at the base of the distal phalanx dorsally of the middle finger. Radiology called that unremarkable but I think that is incorrect. This is where she is the most tender and swollen and ecchymotic. I am placing her in an AlumaFoam cage splint around that joint, given her appropriate work restrictions and have her follow-up with [facility] Discharge Plan Triage Chief Complaint: Upper Extremity Injury ED Provider: Vaibhav Quiroga Dx/Rx/DC Orders Clinical Impression: Closed fracture of distal phalanx of left middle finger Instructions: ED Fracture, Finger, Closed Prescriptions: No Action mesalamine 500 mg capsule, extended release 1,000 mg PO ONCE celecoxib 100 mg capsule 100 mg PO BID Qty: 60 12RF cyclobenzaprine 5 mg tablet 5 mg PO TID PRN (Reason: muscle spasm) Qty: 45 3RF venlafaxine [Effexor XR] 150 mg capsule,extended release 24hr 150 mg PO DAILY Qty: 30 12RF cefdinir 300 mg capsule 300 mg PO BID Qty: 20 0RF levalbuterol tartrate 45 mcg/actuation HFA aerosol inhaler 2 inh inhalation Q6H Qty: 15 12RF fexofenadine [No] 180 mg Tablet 180 mg PO DAILY Primary Care Provider: Thelma Simmons NP Referrals: [facility] [Group of Physicians] - As soon as possible Thelma Simmons NP, SIDE LASTER TACK-C [Primary Care Provider] - Print Language: Norwegian Disposition Disposition: Home, Self Care
--- NOTE | 2024-03-03 21:35 | RAD_ITS ---
STUDY: X-RAY - LEFT HAND REASON FOR EXAM: Female, 63 years old. injury -- attn: fingers 2-3 TECHNIQUE: 3 view(s) of the hand. COMPARISON: None. FINDINGS: Normal radiocarpal articulation. Normal distal radioulnar joint. Normal visualized carpal bones. Normal carpal articulations Normal carpometacarpal articulation of the thumb. Normal second through fifth carpometacarpal joints. Normal metacarpi. Normal metacarpophalangeal joint of the thumb. Normal interphalangeal joint of the thumb. Normal proximal and distal phalanges of the thumb. Normal metacarpophalangeal joints of the second through fifth fingers. There is diffuse articular joint space narrowing of the proximal and distal interphalangeal joints of the second through fifth fingers, but without erosive changes or periarticular soft tissue swelling. Normal phalanges of the second through fifth fingers. The soft tissue structures are unremarkable. RAD/Hand Min 3 Views IMPRESSION: Degenerative changes. No fracture or dislocation. Electronically Signed: Eduardo Keith MD at 22:17 EDT ,
[2024-03-03] MEDS: Acetaminophen 325 MG Tablet 650 MG PO (23:19)
[2024-03-03 23:26] VITALS: BP 157/93; PULSE 80; RESP 16; TEMP 36.6; O2SAT 96
== END 2024-03-03 23:26 | disposition home or self-care (01) ==
PROVIDERS: Emergency Provider Emergency Medicine; PCP Nurse Practitioner; Visit Provider Emergency Medicine
DX: S62.633A Displaced fracture of distal phalanx of left middle finger, initial encounter for closed fracture (principal); W24.1XXA Contact with transmission devices, not elsewhere classified, initial encounter; Y99.0 Civilian activity done for income or pay; F17.210 Nicotine dependence, cigarettes, uncomplicated; Z79.899 Other long term (current) drug therapy
CPT/HCPCS: 73130; 99282

== ENCOUNTER → 2024-03-06 | Outpatient (CLI) | payer OTHER, BC, SELFPAY ==
--- NOTE | 2024-03-06 10:37 | RAD_ITS ---
STUDY: X-RAY - LEFT HAND, ATTENTION . FINGER REASON FOR EXAM: Female, 63 years old. lm crush injury TECHNIQUE: 3 view(s) of the finger were obtained. COMPARISON: None. FINDINGS: Normal metacarpal head. Normal metacarpophalangeal joint. Normal proximal phalanx. Normal middle phalanx. Nondisplaced avulsion-type fracture at the base of the distal phalanx of the third digit along its dorsal aspect. Normal proximal interphalangeal joint. There is moderate degenerative arthrosis of the distal interphalangeal joint. Soft tissue swelling. RAD/Finger(s) Min 2 Views IMPRESSION: Nondisplaced avulsion-type fracture at the base of the distal phalanx of the third digit along its dorsal aspect. Electronically Signed: Arvind Munoz MD at 11:14 EDT ,
== END | disposition home or self-care (01) ==
PROVIDERS: PCP Nurse Practitioner; Referring Provider Physician Assistant; Visit Provider Physician Assistant
DX: T14.90XA Injury, unspecified, initial encounter (principal); X58.XXXA Exposure to other specified factors, initial encounter
CPT/HCPCS: 73140

== ENCOUNTER → 2025-01-26 | Outpatient (CLI) | payer BC, SELFPAY ==
--- OUTSIDE RECORDS SUMMARY | 2025-01-26 22:30 | XMS RPT_ITS | CCD ---
Author Organization [facility] Care Team Providers Care Clinical Support Tech Name Role Phone Unavailable Primary Care Provider Unavailabl e Jiménez RENEWALS SPECIALIST, RENEWALS SPECIALIST-C Abner Primary Care Provider Jiménez RENEWALS SPECIALIST, RENEWALS SPECIALIST-C Abner Referring Provider MADISON Chandler Attending Provider Troy RENEWALS SPECIALIST, RENEWALS SPECIALIST-C Abner Primary Care Provider Jiménez RENEWALS SPECIALIST, RENEWALS SPECIALIST-C Abner Referring Provider [phone] MD Olayinka Bell Attending Provider Jiménez RENEWALS SPECIALIST, Abner Primary Care Unavailable Jasper Frederick Attending Unavailable Jiménez RENEWALS SPECIALIST, Abner Referring Unavailable Jiménez RENEWALS SPECIALIST, Abner Primary Care Unavailable Bam Wylie Attending Unavailable Jiménez RENEWALS SPECIALIST, Abner Primary Care Unavailable Jasper Frederick Attending Unavailable Jiménez RENEWALS SPECIALIST, Abner Referring Unavailable Jiménez RENEWALS SPECIALIST, Abner Primary Care Unavailable Olayinka Bell Attending Unavailable Jiménez RENEWALS SPECIALIST, Abner Referring Unavailable Jiménez RENEWALS SPECIALIST, Abner Primary Care Unavailable Olaynika Bell Attending Unavailable Jiménez RENEWALS SPECIALIST, Abner Referring Unavailable Jiménez RENEWALS SPECIALIST, Abner Primary Care Unavailable Jasper Frederick Attending Unavailable Jiménez RENEWALS SPECIALIST, Abner Referring Unavailable Jiménez RENEWALS SPECIALIST, Abner Primary Care Unavailable Jiménez RENEWALS SPECIALIST, Abner Attending Unavailable Jiménez RENEWALS SPECIALIST, Abner Referring Unavailable Vaibhav Quiroga Attending Unavailable Jiménez RENEWALS SPECIALIST, Abner Primary Care Unavailable Jasper Frederick Attending Unavailable Jasper Frederick Referring Unavailable Jiménez RENEWALS SPECIALIST, Abner Primary Care Unavailable Jiménez RENEWALS SPECIALIST, Abner Primary Care Unavailable Jiménez RENEWALS SPECIALIST, Abner Referring Unavailable Jasper Frederick Attending Unavailable Jasper Frederick Attending Unavailable Jiménez RENEWALS SPECIALIST, Abner Primary Care Unavailable Troy SOLIZ, Abner Referring Unavailable ABNER JIMÉNEZ Primary Care Unavailable MARGOTH SMITH Attending Unavailable Allergies Allergy Classification Reported Allergen(s) Allergy Type Date of Onset Reaction(s) Facility (7 sources) Etodolac; Translations: [ETODOLAC] Drug Allergy 12-10-2009 [facility] (4 sources) ANOTHER ONE I CAN'T REMEMBER Allergy to substance 04-11-2021 [facility] (4 sources) Amoxicillin Drug Allergy 10-21-2022 [facility] (4 sources) Clavulanate Drug Allergy 10-21-2022 [facility] (1 source) Amoxicillin Drug Allergy 03-30-2024 [facility] (1 source) Clavulanate Drug Allergy 03-30-2024 [facility] (1 source) Etodolac Drug Allergy 03-30-2024 [facility] (1 source) oxaprozin; Translations: [OXAPROZIN] Drug Allergy 12-10-2009 [facility] Rep[facility] Medications Current Medications Medication Drug Class(es) Dates Sig (Normalized) Sig (Original) [id number] 200 actuat albuterol 0.09 mg/actuat metered dose inhaler (5 sources) beta2-Adrenergic Agonist Start: 12-31-2021 End: 08-18-2023 take 1 puff(s) by inhalation every four hours Albuterol Sulfate (Ventolin Hfa) 90 mcg/actuation HFA aerosol inhaler Active 2 PUFF INHALATION Q4H 8.5 August 18, 2023 5:27pm clarithromycin 500 mg oral tablet (10 sources) Macrolide Antimicrobial Start: 11-24-2022 End: 08-18-2023 take 500 mg by mouth twice daily Clarithromycin Active 500 MG PO TWICE A DAY August 18, 2023 5:27pm Start: 12-29-2021 End: 01-08-2022 take 500 mg by mouth twice daily Clarithromycin Discontinued 500 MG PO TWICE A DAY December 28, 2021 11:00pm January 08, 2022 3:09pm fexofenadine hydrochloride 180 mg oral tablet (7 sources) Histamine-1 Receptor Antagonist Start: 04-08-2021 take 1 tablet by mouth once daily Fexofenadine (No) 180 mg Tablet Active 180 MG PO DAILY April 07, 2021 11:00pm Fexofenadine HCl (NO PO) Take by mouth 0 Active Loperamide (1 source) Opioid Agonist LOPERAMIDE HCL P O Take by mouth 0 Active mesalamine (10 sources) Aminosalicylate Start: 10-19-2022 take 1000 mg by mouth once Mesalamine Active 1000 MG PO ONCE October 19, 2022 6:30pm Start: 10-19-2022 take 1000 mg by mouth once Mes alamine Active 1000 MG PO ONCE October 19, 2022 7:30pm Start: 04-18-2021 End: 10-19-2022 take 1000 mg by mouth three times daily Mesalamine Discontinued 1000 MG PO THREE TIMES A DAY April 17, 2021 11:00pm October 19, 2022 6:30pm Completed/Discontinued Medications Medication Drug Class(es) Dates Sig (Normalized) Sig (Original) acetaminophen 325 mg / HYDROcodone bitartrate 5 mg oral tablet (6 sources) Opioid Agonist Start: 07-25-2016 End: 05-23-2019 take 1 tablet by mouth every four hours as needed Hydrocodone-Acetam inophen Discontinued 1 - 2 TABLET PO EVERY 4 HOURS NEEDED July 25, 2016 12:00am May 23, 2019 3:38pm amoxicillin 875 mg / clavulanate 125 mg oral tablet (20 sources) Penicillin-class Antibacterial Start: 01-08-2022 End: 10-21-2022 take 1 tablet by mouth twice daily Amoxicillin-Pot Clavulanate Discontinued 1 TABLET PO TWICE A DAY October 19, 2022 6:31pm October 21, 2022 10:45am Start: 11-27-2021 End: 12-24-2021 take 1 tablet by mouth twice daily Amoxicillin-Pot Clavulanate Discontinued 1 TABLET PO TWICE A DAY November 27, 2021 1:06pm December 24, 2021 10:08am Start: 10-23-2021 End: 11-24-2021 take 1 tablet by mouth twice daily Amoxicillin-Pot Clavulanate Discontinued 1 TABLET PO TWICE A DAY October 22, 2021 11:00pm November 24, 2021 5:59pm Start: 04-08-2021 End: 04-22-2021 take 1 tablet by mouth twice daily Amoxicillin-Pot Clavulanate Discontinued 1 TABLET PO TWICE A DAY April 07, 2021 11:00pm April 22, 2021 12:01pm Start: 04-06-2021 End: 04-13-2021 take 1 tablet by mouth twice daily amoxicillin-clavulanate (AUGMENTIN) 875-125 MG per tablet Take 1 tablet by mouth 2 times daily for 7 days 14 tablet 0 04/06/2021 04/13/2021 Active Start: 12-23-2020 End: 12-31-2020 take 1 tablet by mouth twice daily Amoxicillin-Pot Clavulanate Discontinued 1 TABLET PO TWICE A DAY December 22, 2020 11:00pm December 31, 2020 3:21pm Start: 2018 End: 12-03-2020 take 1 tablet by mouth twice daily Amoxicillin-Pot Clavulanate Discontinued 1 TABLET PO TWICE A DAY March 26, 2020 3:34pm December 03, 2020 3:01pm azithromycin 250 mg oral tablet (12 sources) Macrolide Antimicrobial Start: 04-01-2021 End: 04-06-2021 Azithromycin Discontinued 250 MG PO daily 6 5 March 31, 2021 11:00pm April 05, 2021 11:01pm 2 po qd for 1 day then 1 po qd for 4 days with food or after eating Start: 12-31-2020 End: 01-05-2021 Azithromycin Discontinued 25 0 MG PO daily 6 5 December 30, 2020 11:00pm January 04, 2021 11:01pm 2 po qd for 1 day then 1 po qd for 4 days with food or after eating cefTRIAXone 1000 mg injection (4 sources) Cephalosporin Antibacterial Start: 11-24-2021 End: 11-24-2021 inject 1 g by intramuscular injection once ceftriaxone 1 gram solution for injection Discontinued 1 GM IM ONCE November 24, 2021 6:40pm November 24, 2021 6:40pm Start: 04-01-2021 End: 04-01-2021 inject 1 g by intramuscular injection once ceftriaxone 1 gram solution for injection Discontinued 1 GM IM ONCE April 01, 2021 5:05pm April 01, 2021 9:32pm cefuroxime 500 mg oral tablet (4 sources) Cephalosporin Antibacterial Start: 10-21-2022 End: 11-24-2022 take 500 mg by mouth twice daily Cefuroxime Axetil Discontinued 500 MG PO TWICE A DAY October 20, 2022 11:00pm November 24, 2022 4:57pm ciprofloxacin 500 mg oral tablet (20 sources) Quinolone Antimicrobial Start: 11-24-2021 End: 11-27-2021 take 1 tablet by mouth twice daily Ciprofloxacin Hcl (Cipro) 500 mg tablet Discontinued 500 MG PO TWICE A DAY November 23, 2021 11:00pm November 27, 2021 1:06pm Start: 04-30-2021 End: 10-23-2021 take 500 mg by mouth twice daily Ciprofloxacin Hcl Discontinued 500 MG PO TWICE A DAY April 29, 2021 11:00pm October 23, 2021 5:09pm Start: 04-06-2021 End: 04-06-2021 ciprofloxacin (CILOXAN) 0.3 % ophthalmic solution 2 drop Start: 03-11-2021 End: 04-01-2021 take 1 tablet by mouth twice daily Ciprofloxacin Hcl (Cipro) 500 mg tablet Discontinued 500 MG PO TWICE A DAY March 10, 2021 11:00pm April 01, 2021 4:32pm Start: 04-16-2020 End: 12-03-2020 take 500 mg by mouth twice daily Ciprofloxacin Hcl Discontinued 500 MG PO TWICE A DAY April 15, 2020 11:00pm December 03, 2020 3:02pm ciprofloxacin 3 mg/ml / dexamethasone 1 mg/ml otic suspension (7 sources) Corticosteroid, Quinolone Antimicrobial Start: 04-08-2021 End: 04-22-2021 Ciprofloxacin-Dexamethasone Discontinued 4 DRP LEFT EAR TWICE A DAY April 07, 2021 11:00pm April 22, 2021 12:01pm Start: 04-06-2021 End: 04-13-2021 ciprofloxacin-dexamethasone (CIPRODEX) 0.3-0.1 % otic suspension Place 4 drops into the left ear 2 times daily for 7 days 1 Bottle 0 04/06/2021 04/13/2021 Active dexamethasone 6 mg oral tablet (8 sources) Corticosteroid Start: 12-31-2021 End: 10-19-2022 take 1 tablet by mouth three times daily Dexamethasone (Decadron) 6 mg tablet Discontinued 6 MG PO THREE TIMES A DAY January 08, 2022 3:05pm October 19, 2022 6:29pm dicyclomine hydrochloride 20 mg oral tablet (12 sources) Anticholinergic Start: 01-10-2021 End: 01-08-2022 take 20 mg by mouth three times daily as needed Dicyclomine Discontinued 20 MG PO 3 TIMES DAILY NEEDED April 08, 2021 11:11am January 08, 2022 3:05pm DULoxetine 60 mg delayed release oral capsule (20 sources) Serotonin and Norepinephrine Reuptake Inhibitor Start: 2018 End: 10-19-2022 take 60 mg by mouth once daily Duloxetine Discontinued 60 MG PO DAILY November 11, 2018 12:22pm December 11, 2019 2:49pm Start: 07-25-2016 End: 2018 take 30 mg by mouth once daily Duloxetine Discontinued 30 MG PO DAILY July 25, 2016 12:00am 2018 4:08pm DULoxetine HCl ( CYMBALTA PO) Take by mouth 0 Active flu vac qs 2017(4 yr up)CD(PF) (2 sources) Start: 11-24-2021 End: 11-24-2021 inject 60 ug by intramuscular injection once flu vac qs 2017(4 yr up)CD(PF) Discontinued 60 MCG IM ONCE 1 November 24, 2021 6:40pm November 24, 2021 8:27pm ibuprofen 800 mg oral tablet (6 sources) Nonsteroidal Anti-inflammatory Drug Start: 05-23-2019 End: 12-03-2020 take 800 mg by mouth three times daily Ibuprofen Discontinued 800 MG PO THREE TIMES A DAY 60 May 22, 2019 11:00pm December 03, 2020 3:03pm lansoprazole 30 mg delayed release oral capsule (18 sources) Proton Pump Inhibitor Start: 01-10-2021 End: 10-19-2022 take 30 mg by mouth once daily Lansoprazole Discontinued 30 MG PO DAILY January 29, 2021 7:22pm April 08, 2021 11:11am methylPREDNISolone 4 mg oral tablet (6 sources) Corticosteroid Start: 03-19-2021 End: 04-01-2021 take 1 tablet by mouth once Methylprednisolone (Medrol (Aakash)) 4 mg tablets,dose pack Discontinued 0 PO per package directions March 18, 2021 11:00pm April 01, 2021 4:32pm PO per package directions; metroNIDAZOLE 250 mg oral tablet (12 sources) Nitroimidazole Antimicrobial Start: 03-11-2021 End: 03-21-2021 take 250 mg by mouth three times daily Metronidazole Discontinued 250 MG PO THREE TIMES A DAY 30 March 10, 2021 11:00pm March 20, 2021 11:01pm Start: 12-31-2020 End: 01-10-2021 take 250 mg by mouth three times daily Metronidazole Discontinued 250 MG PO THREE TIMES A DAY 30 December 30, 2020 11:00pm January 09, 2021 11:01pm ondansetron 8 mg oral tablet (4 sources) Serotonin-3 Receptor Antagonist Start: 10-21-2022 End: 11-24-2022 take 8 mg by mouth every twelve hours Ondansetron Hcl Discontinued 8 MG PO Q12H October 20, 2022 11:00pm November 24, 2022 4:57pm predniSONE 20 mg oral tablet (4 sources) Start: 11-24-2022 End: 08-18-2023 take 40 mg by mouth once daily Prednisone Discontinued 40 MG PO DAILY November 23, 2022 11:00pm August 18, 2023 5:28pm promethazine hydrochloride 12.5 mg oral tablet (6 sources) Phenothiazine Start: 03-11-2021 End: 10-23-2021 take 12.5 mg by mouth every four hours Promethazine Discontinued 12.5 MG PO Q4H March 10, 2021 11:00pm October 23, 2021 5:09pm triamcinolone acetonide 40 mg/ml injectable suspension (2 sources) Corticosteroid Start: 12-03-2020 End: 12-03-2020 inject 60 mg by intramuscular injection once triamcinolone acetonide 40 mg/mL suspension for injection Discontinued 60 MG IM ONCE 1.5 December 03, 2020 3:39pm December 03, 2020 3:39pm Problems Active Problems Problem Classification Problem Date Documented Da te Episodic/Chronic Abdominal pain (12 sources) Left lower quadrant pain; Translations: [Left lower quadrant pain] 03-11-2021 Episodic Acute and unspecified renal failure (5 sources) Prerenal azotemia; Translations: [Unspecified kidney failure] 01-08-2022 Chronic Chronic obstructive pulmonary disease and bronchiectasis (1 source) Bronchitis, not specified as acute or chronic; Translations: [Bronchitis] Onset: 08-13-2024 Episodic Diverticulosis and diverticulitis (6 sources) Diverticulitis; Translations: [Diverticulitis of intestine, part unspecified, without perforation or abscess without bleeding] 03-12-2021 Chronic Fracture of upper limb (1 source) Displaced fracture of distal phalanx of left middle finger, initial encounter for closed fracture; Translations: [Displaced fracture of distal phalanx of left middle finger, initial encounter for closed fracture] Onset: 03-30-2024 Episodic Nausea and vomiting (6 sources) Nausea; Translations: [Nausea] 03-11-2021 Episodic Osteoarthritis (3 sources) Osteoarthritis of right knee joint; Translations: [Unilateral primary osteoarthritis, right knee] Onset: 08-23-2023 08-23-2023 Chronic Other acquired deformities (1 source) Mallet finger of left finger(s); Translations: [Mallet finger of left finger(s)] Onset: 03-30-2024 Episodic Other connective tissue disease (6 sources) Fibromyalgia; Translations: [Fibromyalgia] 11-24-2021 Episodic Other connective tissue disease (1 source) Synovial cyst of right popliteal space; Translations: [Synovial cyst of popliteal space [Serra], right knee] 08-23-2023 Episodic Other ear and sense organ disorders (1 source) Infective otitis externa of left ear; Translations: [Other infective otitis externa, left ear] Episodic Other ear and sense organ disorders (4 sources) Hearing loss of right ear; Translations: [Impacted cerumen, right ear] 01-08-2022 Episodic Other gastrointestinal disorders (6 sources) Irritable bowel syndrome; Translations: [Irritable bowel syndrome without diarrhea] 01-10-2021 Chronic Other gastrointestinal disorders (6 sources) Diarrhea; Translations: [Diarrhea, unspecified] 03-11-2021 Episodic Other gastrointestinal disorders (6 sources) Occult blood in stools; Translations: [Other fecal abnormalities] 03-19-2021 Episodic Other infections; including parasitic (4 sources) Post-viral disorder; 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] 11-24-2022 Chronic Other injuries and conditions due to external causes (1 source) Injury, unspecified, initial encounter; Translations: [Injury, unspecified, initial encounter] Onset: 03-29-2024 Episodic Other lower respiratory disease (6 sources) Cough; Translations: [Cough] 2018 Episodic Other non-traumatic joint disorders (1 source) Effusion of right knee joint; Translations: [Effusion, right knee] 08-18-2023 Episodic Other upper respiratory disease (6 sources) Allergy to pollen; Translations: [Allergic rhinitis due to pollen] 12-26-2014 Chronic Other upper respiratory infections (6 sources) Maxillary sinusitis; Translations: [Chronic maxillary sinusitis] 03-26-2020 Chronic Other upper respiratory infections (16 sources) Streptococcal sore throat; Translations: [Streptococcal pharyngitis] 11-24-2022 Episodic Otitis media and related conditions (20 sources) Acute suppurative otitis media without spontaneous rupture of ear drum; Translations: [Acute suppurative otitis media without spontaneous rupture of ear drum, left ear] Onset: 08-13-2024 Episodic Superficial injury; contusion (3 sources) Contusion of foot; Translations: [Contusion of left foot, initial encounter] Onset: 03-22-2024 04-02-2023 Episodic Urinary tract infections (6 sources) Cystitis; Translations: [Cystitis, unspecified without hematuria] 11-24-2021 Episodic Viral infection (5 sources) Disease caused by 2019-nCoV; Translations: [COVID-19] 12-31-2021 Episodic Past or Other Problems Problem Classification Problem Date Documented Da te Episodic/Chronic Other connective tissue disease (2 sources) Synovial cyst of popliteal space [Serra], right knee; Translations: [Synovial cyst of popliteal space] Onset: 08-23-2023 08-23-2023 Episodic Other non-traumatic joint disorders (3 sources) Pain in right knee; Translations: [Right knee pain] Onset: 08-23-2023 08-18-2023 Episodic Other non-traumatic joint disorders (1 source) Effusion, right knee; Translations: [Effusion, right knee] Onset: 08-24-2023 Episodic Results Test Name Value Interpretation Reference Range Facility ED NOTEon 08-13-2024 ED NOTE HNO ID: [id number] Author: HARRY FERNÁNDEZ RN Service: Emergency Medicine Author Type: Registered Nurse Type: ED Notes Filed: 08/15/2024 09:10 Note Text: Patient Call Back Information How are you doing ? better Did we appropriately manage your pain? Yes Did you understand your discharge instructions? Yes Did you get your prescriptions filled? Yes Were you able to make a follow-up appointment with your physician? Yes Were you comfortable during your stay here? Yes Did a member of the ER nursing team round on you during your visit? Yes You will receive a patient satisfaction survey in the mail in the nest 2 weeks, please take the time to fill out the survey as your input from your ER visit is very important to us. Yes Can we do anything else to help you? No Normal [facility] ED NOTE HNO ID: [id number] Author: FAHAD MARTINEZ RN Service: ? Author Type: Registered Nurse Type: ED Notes Filed: 08/13/2024 16:46 Note Text: Pt reports respiratory symptoms onset on Days. Persistent cough - strong to yellow / green sputum. Denies fever, N/V/D. Cough / Sneeze that makes it hard to sleep. Bayron tested positive for RSV recently. Has albuterol inhaler at bedside; reports this medication as slightly helping cough. Normal [facility] ED PROV NOTEon 08-13-2024 ED PROV NOTE HNO ID: [id number] Author: MARGOTH SMITH MD Service: Emergency Medicine Author Type: Physician Type: ED Provider Notes Filed: 08/13/2024 17:25 Note Text: ED Provider Note Patient Name: Sariah Bhagat : 1960 SERVICE DATE: 08/13/24 History Patient presents with: Cough Sariah Bhagat is a 63 year old female with history of smoking who presents with cough that is productive of green sputum. Patient is taking not on EVERETTE inhibitors. - Patient was exposed to bayron with RSV and has taken prior breathing treatments - Symptoms began 6 days prior to arrival. Onset was gradual and is gradually worsening - Severity: mild - Cough is exacerbated when lying down. - Cough is not exacerbated with exertion. - Symptoms are associated with congestion. And ear pain - Symptoms are not associated with chest pain. - Improved by nothing. - Not improved by inhaler Previous history of respiratory tract infection and reactive airways so she does have an inhaler that she uses when she gets sick. She was at work today and started to feel worse so she came to the emergency department to be evaluated. Bayron recently diagnosed with RSV.. PAST MEDICAL HISTORY Diagnosis Date Abnormal glandular Papanicolaou smear of cervix Abn. Pap smear (cervix) Depressive disorder, not elsewhere classified Irritable bowel syndrome Unspecified , without mention of complication, unspecified 09/15/2007 Miscarriage PAST SURGICAL HISTORY Procedure Laterality Date APPENDECTOMY 1992 CONIZATION CERVIX W/WO DANDC RPR ELTRD EXC LEEP-Cervix HYSTEROSCOPY ENDOMETRIAL ABLATION 04/05/08 Novasure LAPAROSCOPY W/RMVL ADNEXAL STRUCTURES 05/30/09 RSO LIG/TRNSXJ FLP TUBE ABDL/VAG APPR UNI/BI 11/01/07 Laparascopic w/ filshie clips FAMILY HISTORY Problem Relation Age of Onset Colon Cancer Father Hypertension Father Social History Tobacco Use Smoking status: Every Day Current packs/day: 0.00 Types: Cigarettes Start date: 04/09/1994 Last attempt to quit: 04/09/2014 Years since quittin.3 Smokeless tobacco: Never Tobacco comments: smokes 1-2 cigarettes daily Vaping Use Vaping status: Never Used Substance and Sexual Activity Alcohol use: No Drug use: No Sexual activity: Yes Partners: Male control/protection: Tubal Ligation ALLERGIES Allergen Reactions Daypro [Oxaprozin] Diarrhea Etodolac Diarrhea Review of Systems Constitutional: Positive for fatigue. Negative for chills and fever. HENT: Positive for congestion and ear pain. Negative for sore throat. Respiratory: Positive for cough. Negative for shortness of breath. Cardiovascular: Negative for chest pain and palpitations. Gastrointestinal: Negative for nausea and vomiting. Allergic/Immunologic: Negative for environmental allergies, food allergies and immunocompromised state. Physical Exam Vitals [08/13/24 1638] BP Pulse Temp Temp src Resp SpO2 Weight Height 131/93 (!) 103 36.7 ?C (98.1 ?F) Temporal 18 100 % 50.8 kg (112 lb) 1.524 m (5') Physical Exam Vitals and nursing note reviewed. Constitutional: General: She is not in acute distress. Appearance: Normal appearance. She is not ill-appearing. HENT: Head: Normocephalic and atraumatic. Ears: Comments: Left TM is dull and erythematous right TM dull Nose: Nose normal. No congestion. Mouth/Throat: Mouth: Mucous membranes are moist. Pharynx: Oropharynx is clear. No posterior oropharyngeal erythema. Eyes: General: Right eye: No discharge. Left eye: No discharge. Extraocular Movements: Extraocular movements intact. Conjunctiva/sclera: Conjunctivae normal. Cardiovascular: Rate and Rhythm: Normal rate and regular rhythm. Pulmonary: Effort: Pulmonary effort is normal. No respiratory distress. Breath sounds: No rhonchi. Musculoskeletal: General: No swelling or tenderness. Normal range of motion. Cervical back: Normal range of motion and neck supple. Skin: General: Skin is warm and dry. Capillary Refill: Capillary refill takes less than 2 seconds. Findings: No rash. Neurological: General: No focal deficit present. Mental Status: She is alert and oriented to person, place, and time. Psychiatric: Mood and Affect: Mood normal. Behavior: Behavior normal. Thought Content: Thought content normal. Judgment: Judgment normal. Diagnostic Testing ED Labs Ordered and Reviewed - No data to display Procedures ED Course / Clinical Impression Clinical Impressions as of 08/13/24 1724 Bronchitis Non-recurrent acute suppurative otitis media of left ear without spontaneous rupture of tympanic membrane MDM / Disposition / Plan Nontoxic well-hydrated no respiratory distress congestion and cough without wheeze just used her albuterol. Left otitis media. History of smoking and previous reactive airways. Patient was started on prednisone and doxycycline. Patient has tolerated prednisone and is used in the past und (more content not included)... 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 left wrist Bronchitis Fibromyalgia Depression Seasonal allergies Surgical History History of colonoscopy History of endometrial ablation History of appendectomy Family History Mother Hypertension Father Hypertension Colon cancer Brother Colon cancer Other Respiratory disease Social History household members: none Smoking Status: Current every day smoker tobacco type: cigarettes alcohol intake: never substance use type: does not use HPI HPI Chief Complaint: LT MIDDLE FINGER INJURY February Details: SARIAH BHAGAT, is a 63 F who presents to the office today for NO SHOW Coding Level of Care Code No Charge 05/01/24 1347 Date Jasper Renteria Signature: Date (if applicable) CC: Normal [facility] Urgent Care Visit Reporton 0 04-04-2024 Urgent Care Visit Report [facility] [address], [address] [place] [address] OFFICE VISIT Date of Service: 04/04/24 MR#: [id number] Acct: [id number] Name: SARIAH BHAGAT Rep #: [id number] : 1960 Provider: MADISON Ray Age/Sex: 63/F Location: [facility] Status: Signed Intake Vital Signs 03/21/24 10:06 03/30/24 09:31 04/04/24 09:51 Height 5 ft 5 ft BP 158/86 H Blood Pressure Location Lt brachial Position Sitting Respiration 14 Pulse 76 Pulse Source Auscultation Temp 97.0 F L Temp Source Temporal Intake Visit Reasons: 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 left wrist Bronchitis Fibromyalgia Depression Seasonal allergies Surgical History History of colonoscopy History of endometrial ablation History of appendectomy Family History Mother Hypertension Father Hypertension Colon cancer Brother Colon cancer Other Respiratory disease Social History household members: none Smoking Status: Current every day smoker tobacco type: cigarettes alcohol intake: never substance use type: does not use HPI HPI Chief Complaint: LT MIDDLE FINGER INJURY February Details: SARIAH BHAGAT, is a 63 F who presents to the office today for recheck left middle finger DP fracture at DIPJ (closed) status post work-related injury on 03/03/2024. Patient notes on date of injury while at work suffering a crush injury with machinery, reporting to ED same day where radiographs revealed a fracture though initially not appreciated by radiology on same day therefore is here for follow- up. Since her last evaluation [facility] at the [facility], patient has followed up with orthopedics on 03/30/2020 for who recommended keeping the restrictions to 1 pound lifting and they placed a C9 referral to Ortho hand or plastics to determine if surgical revision would be appropriate versus maintain the current course of stabilization and extension with splint; C9 approval is pending as of the time of this dictation. Localized tenderness and swelling persists since last evaluation here, with pain aggravated to touch and with range of motion at DIPJ, alleviated with splint isolation keeping DIPJ in extension. PMH NC. Fgtwm-gdrj-bavemdpi. No zvqs-tum-ecxcgog products taken to assist. No other associated symptoms and no other alleviating/aggravating factors. ROS Const Constitutional: No other (As above) Exam Const General: cooperative, healthy appearing and no acute distress Orientation: alert and awake Resp Effort Inspection: normal respiratory effort and able to speak in complete sentences Cardio Rate: regular rate Pulses: radial pulses present Skin General: no rashes or lesions noted Other: LMF swelling with point tender to palpation dorsal DIPJ Neuro General: patient alert and patient awake Cognition: normal cognition Speech: speech normal Extrem General: capillary refill normal and normal exam except as noted (See skin exam) Psych Appearance: grossly normal Mental Status: mental status grossly normal Mood: congruent mood Affect: normal affect Speech and Movement: speech and movement normal Attitude: cooperative Diagnoses Closed fracture of distal phalanx of left middle finger S62.633A Assessment and Plan Assessment and Plan (1) Closed fracture of distal phalanx of left middle finger: Status: Acute Plan: See revised work restrictions on today's MEDCO-14, based on Ortho recommendations from 03/30/2024. Supportive measures including rest, ice, elevate, maintaining splint. Follow-up with the [facility] on 05/01/2024, sooner should symptoms only worsen or any other concerns develop. Patient states acknowledging understanding all the above. Coding Level of Care Code Off vis,est,level 2 04/04/24 1041 Date Jasper Renteria Signature: Date (if applicable) CC: Normal [facility] Finger(s) Min 2 Viewson 03-10 Finger(s) Min 2 Views [facility] [address] [place] [address] Finger(s) Min 2 Views MR#: [id number] Acct: [id number] Name: SARIAH BHAGAT Rep #: [id number] : 1960 F 63 From: Martinez Cordero MD PCP: SEFERINO Chong Status: DEP AMB Study: Finger(s) Min 2 Views Date of Exam: 03/30/24 Exam# [id number] Ordering Dr: [place] [id number] STUDY: X-RAY - LEFT HAND, ATTENTION THIRD FINGER REASON FOR EXAM: Female, 63 years old. Pain, patient smashed distal middle finger. TECHNIQUE: 3 views of the left third finger were obtained. COMPARISON: Left third finger radiographs dated 03/06/2024. FINDINGS: Normal metacarpal head. Normal metacarpophalangeal joint. Normal proximal phalanx. Normal middle phalanx. There is an unchanged avulsion-type fracture at the dorsal base of the distal phalanx of the third digit. Normal proximal interphalangeal joint. There is persistent moderate degenerative arthrosis of the distal interphalangeal joint. There is persistent soft tissue tissue swelling. RAD/Finger(s) Min 2 Views IMPRESSION: Unchanged avulsion-type fracture at the dorsal base of the distal phalanx of the third digit. Persistent degenerative arthrosis of the DIP joint of the third finger. Electronically Signed: Martinez Cordero MD at 10:56 EDT Reading Location ID and State: [facility] / [place] , Service support , CC: SEFERINO Jiménez; Dr. Olayinka Bell MD Supervisor Network Control Operators: Signed Normal [facility] Orthopedic Visit Reporton Orthopedic Visit Report [facility] [place] [address] OFFICE VISIT Date of Service: 03/30/24 MR#: [id number] Acct: [id number] Name: SARIAH BHAGAT ANN Rep #: [id number] : 1960 Provider: Dr. Olayinka craft MD Age/Sex: 63/F Location: [facility] Status: Signed Intake Vital Signs 03/21/24 10:06 03/23/24 09:16 03/30/24 09:31 Height 5 ft 5 ft 5 ft Weight: 119 lb BMI 23.2 BP 152/84 H Blood Pressure Location Rt brachial Position Sitting Respiration 16 Pulse 94 Pulse Source Monitor Temp 98.2 F Temp Source Temporal Pulse Oximetry (%) 96 Oxygen Delivery Method room air Intake Visit Reasons: LEFT HAND Chief Complaint: LT MIDDLE FINGER INJURY February Accompanied by: Self Is patient in pain?: Yes Pain scale (1-10): 6 Allergies etodolac Allergy (Verified 03/30/24 09:32) Hives amoxicillin (From Augmentin) Adverse Reaction (Severe, Verified 03/30/24 09:32) N V clavulanic acid (From Augmentin) Adverse Reaction (Severe, Verified 03/30/24 09:32) N V Medications ???Medication ???Instructions ???Recorded ???Confirmed ???Type fexofenadine 180 mg tablet 180 mg PO DAILY seasonal allergies 04/08/21 03/30/24 History mesalamine 500 mg capsule,extended 1,000 mg PO ONCE 10/19/22 03/30/24 History release celecoxib 100 mg capsule 100 mg PO BID #60 caps 01/24/24 03/30/24 Rx cyclobenzaprine 5 mg tablet 5 mg PO TID PRN muscle spasm #45 01/24/24 03/30/24 Rx tabs venlafaxine 150 mg 150 mg PO DAILY #30 caps 01/24/24 03/30/24 Rx capsule,extended release 24 hr (Effexor XR) levalbuterol tartrate 45 2 inh inhalation Q6H PRN 03/21/24 03/30/24 History mcg/actuation aerosol inhaler PFSH Medical History Closed fracture of distal phalanx of left middle finger with mallet deformity Osteoarthritis of right knee Synovial cyst of popliteal space [Serra], right knee Colitis Easy bruising Restless legs History of GI bleed History of IBS Gastric reflux Smoker IBS (irritable bowel syndrome) Fx. left wrist Bronchitis Fibromyalgia Depression Seasonal allergies Surgical History History of colonoscopy History of endometrial ablation History of appendectomy Family History Mother Hypertension Father Hypertension Colon cancer Brother Colon cancer Other Respiratory disease Social History household members: none Smoking Status: Current every day smoker tobacco type: cigarettes alcohol intake: never substance use type: does not use HPI LEFT HAND Details: This documentation accurately reflects the service provided and the decisions made by me, Dr. Olayinka Bell MD 03/30/24 0904. Part of today???s visit was documented by [ ], acting as scribe. SARIAH BHAGAT is a 63 year old F here today for L middle finger work comp injury. RHD. crushed at work. was doing welding, top part of torque converter crushed the finger. RHD. 03/03/24. been a month. been splinted time checker. working light duties at work. lifting 1-2 pounds with left UE. 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 seen in urgent care 9 days ago 63 F who presents to the office today for recheck left middle finger DP fracture at DIPJ (closed) status post work-related injury on 03/03/2024. Patient notes on date of injury while at work suffering a crush injury with machinery, reporting to ED same day where radiographs revealed a fracture though initially not appreciated by radiology on same day therefore is here for follow-up. Localized tenderness with ecchymosis and swelling persists since last evaluation here, with pain aggravated to touch and with range of motion at DIPJ, alleviated with splint isolation keeping DIPJ and extension. PMH NC. Abjrw-drtb-hzwrpreb. No zdbk-djz-qnbexfu products taken to assist. No other associated symptoms and no other alleviating/aggravating factors. Supplemental Info [facility] Services [address] [place] [address] Finger(s) Min 2 Views MR#: [id number] Acct: [id number] Name: SARIAH BHAGAT ANN Rep #: [id number] : 1960 F 63 From: Arvind Munoz MD PCP: SEFERINO Chong Status: REG CLI Study: Finger(s) Min 2 Views Date of Exam: 03/06/24 Exam# [id number] Ordering Dr: [place] [id number] STUDY: X-RAY - LEFT HAND, ATTENTION . FINGER REASON FOR EXAM: Female, 63 years old. lm cr (more content not included)... Normal [facility] Urgent Care Visit Reporton 0 03-21-2024 Urgent Care Visit Report [facility] [address], [address] [place] [address] OFFICE VISIT Date of Service: 03/21/24 MR#: [id number] Acct: [id number] Name: SARIAH BHAGAT ANN Rep #: [id number] : 1960 Provider: MADISON Ray Age/Sex: 63/F Location: [facility] Status: Signed Intake Vital Signs 03/06/24 10:13 03/21/24 10:06 Height 5 ft 5 ft Weight: 115 lb BMI 22.4 BP 156/96 H 152/84 H Blood Pressure Location Lt brachial Rt brachial Position Sitting Sitting Respiration 16 16 Pulse 46 L 94 Pulse Source Monitor Monitor Temp 98.0 F 98.2 F Temp Source Temporal Temporal Pulse Oximetry (%) 97 96 Oxygen Delivery Method room air room air Intake Visit Reasons: 2 W FU/SCHAEFFLER TRANS Chief Complaint: LT MIDDLE FINGER INJURY Accompanied by: Self Is patient in pain?: Yes Pain scale (1-10): 6 Allergies etodolac Allergy (Verified 03/06/24 10:14) Hives amoxicillin (From Augmentin) Adverse Reaction (Severe, Verified 03/06/24 10:14) N V clavulanic acid (From Augmentin) Adverse Reaction (Severe, Verified 03/06/24 10:14) N V Medications ???Medication ???Instructions ???Recorded ???Confirmed ???Type fexofenadine 180 mg tablet 180 mg PO DAILY seasonal allergies 04/08/21 03/21/24 History mesalamine 500 mg capsule,extended 1,000 mg PO ONCE 10/19/22 03/21/24 History release celecoxib 100 mg capsule 100 mg PO BID #60 caps 01/24/24 03/21/24 Rx cyclobenzaprine 5 mg tablet 5 mg PO TID PRN muscle spasm #45 01/24/24 03/21/24 Rx tabs venlafaxine 150 mg 150 mg PO DAILY #30 caps 01/24/24 03/21/24 Rx capsule,extended release 24 hr (Effexor XR) levalbuterol tartrate 45 2 inh inhalation Q6H PRN 03/21/24 History mcg/actuation aerosol inhaler PFSH Medical History Osteoarthritis of right knee Synovial cyst of popliteal space [Serra], right knee Colitis Easy bruising Restless legs History of GI bleed History of IBS Gastric reflux Smoker IBS (irritable bowel syndrome) Fx. left wrist Bronchitis Fibromyalgia Depression Seasonal allergies Surgical History History of colonoscopy History of endometrial ablation History of appendectomy Family History Mother Hypertension Father Hypertension Colon cancer Brother Colon cancer Other Respiratory disease Social History household members: none Smoking Status: Current every day smoker tobacco type: cigarettes alcohol intake: never substance use type: does not use HPI HPI Chief Complaint: LT MIDDLE FINGER INJURY Details: SARIAH BHAGAT, is a 63 F who presents to the office today for recheck left middle finger DP fracture at DIPJ (closed) status post work-related injury on 03/03/2024. Patient notes on date of injury while at work suffering a crush injury with machinery, reporting to ED same day where radiographs revealed a fracture though initially not appreciated by radiology on same day therefore is here for follow- up. Localized tenderness with ecchymosis and swelling persists since last evaluation here, with pain aggravated to touch and with range of motion at DIPJ, alleviated with splint isolation keeping DIPJ and extension. PMH NC. Jdadb-hrht-fxpjdnvl. No jkfb-xos-nuohtrs products taken to assist. No other associated symptoms and no other alleviating/aggravating factors. ROS Const Constitutional: No other (As above) Exam Const General: cooperative, healthy appearing and no acute distress Orientation: alert and awake Resp Effort Inspection: normal respiratory effort and able to speak in complete sentences Cardio Rate: regular rate Pulses: radial pulses present Skin General: no rashes or lesions noted Other: LMF ecchymosis and swelling with point tender to palpation dorsal DIPJ Neuro General: patient alert and patient awake Cognition: normal cognition Speech: speech normal Extrem General: capillary refill normal and normal exam except as noted (See skin exam) Psych Appearance: grossly normal Mental Status: mental status grossly normal Mood: congruent mood Affect: normal affect Speech and Movement: speech and movement normal Attitude: cooperative Diagnoses Closed fracture of distal phalanx of left middle finger S62.633A Assessment and Plan Assessment and Plan (1) Closed fracture of distal phalanx of left middle finger: Status: Acute Plan: See unchanged work restrictions on today's MEDCO-14. Awaiting approval of C9 submitted last evaluation for Ortho-hand referral to Dr. Calderón of [facility] in [facility]. Supportive measures including rest, ice, elevate, maintaining ulnar splint as (more content not included)... Normal [facility] Office Visit Reporton 2023 Office Visit Report [facility] [address] [place] [address] OFFICE VISIT Date of Service: 03/06/24 MR#: [id number] Acct: [id number] Patient: SARIAH BHAGAT ANN Rep #: [id number] : 1960 Provider: MADISON Ray Age/Sex: 63/F Location: [facility] Status: Signed with Addenda ADDENDUM by Linda Birch on 05/12/24 at 1444 Office Procedure Documentation entered by Linda Birch 05/12/24 14:44: [facility] Billing Sheet Testing Breath Alcohol in [facility]: Yes Post-Accident NON-DOT Drug Screen in [facility]: Yes Pre-Employment Drug Screen: No Date cc: * Signed Intake Vital Signs 03/06/24 10:13 Height 5 ft Weight: 115 lb BMI 22.4 BP 156/96 H Blood Pressure Location Lt brachial Position Sitting Respiration 16 Pulse 46 L Pulse Source Monitor Temp 98.0 F Temp Source Temporal Pulse Oximetry (%) 97 Oxygen Delivery Method room air Intake Visit Reasons: PA/NON DOT/DRUG/BAT SCREEN/SEKOUEFABRAM Chief Complaint: LT MIDDLE FINGER INJURY Allergies etodolac Allergy (Verified 03/06/24 10:14) Hives amoxicillin (From Augmentin) Adverse Reaction (Severe, Verified 03/06/24 10:14) N V clavulanic acid (From Augmentin) Adverse Reaction (Severe, Verified 03/06/24 10:14) N V Office Procedures [facility] Billing Sheet Testing Breath Alcohol in [facility]: Yes Pre-Employment Drug Screen: Yes 03/07/24 1244 Date Jasper Renteria Signature: Date (if applicable) CC: Normal [facility] Finger(s) Min 2 Viewson 07- Finger(s) Min 2 Views [facility] [address] [place], [place] [address] [phone] Finger(s) Min 2 Views MR#: [id number] Acct: [id number] Name: SARIAH BHAGAT ANN Rep #: [id number] : 1960 F 63 From: Arvind luz MD PCP: SEFERINO Chong Status: REG CLI Study: Finger(s) Min 2 Views Date of Exam: 03/06/24 Exam# [id number] Ordering Dr: [place] [id number] STUDY: X-RAY - LEFT HAND, ATTENTION . FINGER REASON FOR EXAM: Female, 63 years old. lm crush injury TECHNIQUE: 3 view(s) of the finger were obtained. COMPARISON: None. FINDINGS: Normal metacarpal head. Normal metacarpophalangeal joint. Normal proximal phalanx. Normal middle phalanx. Nondisplaced avulsion-type fracture at the base of the distal phalanx of the third digit along its dorsal aspect. Normal proximal interphalangeal joint. There is moderate degenerative arthrosis of the distal interphalangeal joint. Soft tissue swelling. RAD/Finger(s) Min 2 Views IMPRESSION: Nondisplaced avulsion-type fracture at the base of the distal phalanx of the third digit along its dorsal aspect. Electronically Signed: Arvind Munoz MD at 11:14 EDT Reading Location ID and State: [facility] / [place] , Service support , CC: SEFERINO Jiménez; MADISON Ray Supervisor Network Control Operators: Signed Normal [facility] Urgent Care Visit Reporton 0 03-06-2024 Urgent Care Visit Report [facility] [address], [address] [place] [address] OFFICE VISIT Date of Service: 03/06/24 MR#: [id number] Acct: [id number] Name: SARIAH BHAGAT Rep #: [id number] : 1960 Provider: MADISON Ray Age/Sex: 63/F Location: [facility] Status: Signed Intake Vital Signs 03/03/24 20:51 03/06/24 10:13 Height 5 ft 1 in 5 ft Weight: 115 lb BMI 22.4 BP 156/96 H Blood Pressure Location Lt brachial Position Sitting Respiration 16 Pulse 46 L Pulse Source Monitor Temp 98.0 F Temp Source Temporal Pulse Oximetry (%) 97 Oxygen Delivery Method room air Intake Visit Reasons: L MIDDLE FINGER INJURY/SCHAEFFLER Chief Complaint: LT MIDDLE FINGER INJURY 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 Accompanied by: Self Is patient in pain?: Yes Allergies etodolac Allergy (Verified 03/06/24 10:14) Hives amoxicillin (From Augmentin) Adverse Reaction (Severe, Verified 03/06/24 10:14) N V clavulanic acid (From Augmentin) Adverse Reaction (Severe, Verified 03/06/24 10:14) N V Medications ???Medication ???Instructions ???Recorded ???Confirmed ???Type fexofenadine 180 mg tablet 180 mg PO DAILY seasonal allergies 04/08/21 03/06/24 History mesalamine 500 mg capsule,extended 1,000 mg PO ONCE 10/19/22 03/06/24 History release cefdinir 300 mg capsule 300 mg PO BID #20 caps 01/24/24 03/06/24 Rx celecoxib 100 mg capsule 100 mg PO BID #60 caps 01/24/24 03/06/24 Rx cyclobenzaprine 5 mg tablet 5 mg PO TID PRN muscle spasm #45 01/24/24 03/06/24 Rx tabs levalbuterol tartrate 45 2 inh inhalation Q6H #15 grams 01/24/24 03/06/24 Rx mcg/actuation aerosol inhaler venlafaxine 150 mg 150 mg PO DAILY #30 caps 01/24/24 03/06/24 Rx capsule,extended release 24 hr (Effexor XR) PFSH Medical History Osteoarthritis of right knee Synovial cyst of popliteal space [Serra], right knee Colitis Easy bruising Restless legs History of GI bleed History of IBS Gastric reflux Smoker IBS (irritable bowel syndrome) Fx. left wrist Bronchitis Fibromyalgia Depression Seasonal allergies Surgical History History of colonoscopy History of endometrial ablation History of appendectomy Family History Mother Hypertension Father Hypertension Colon cancer Brother Colon cancer Other Respiratory disease Social History household members: none Smoking Status: Current every day smoker tobacco type: cigarettes alcohol intake: never substance use type: does not use HPI HPI Chief Complaint: LT MIDDLE FINGER INJURY Details: SARIAH BHAGAT, is a 63 F who presents to the office today for recheck left middle finger DP fracture at DIPJ (closed) status post work-related injury on 03/03/2024. Patient notes on date of injury while at work suffering a crush injury with machinery, reporting to ED same day where radiographs revealed a fracture though initially not appreciated by radiology on same day therefore is here for follow- up. Localized tenderness with ecchymosis and swelling, with pain aggravated touch with range of motion at DIPJ, alleviated with splint isolation keeping DIPJ and extension. PMH NC. Nfhkg-snko-iocwpjcl. No rxij-hnj-vnffxcb products taken to assist. No other associated symptoms and no other alleviating/aggravating factors. ROS Const Constitutional: No other (As above) Exam Const General: cooperative, healthy appearing and no acute distress Orientation: alert and awake Resp Effort Inspection: normal respiratory effort and able to speak in complete sentences Cardio Rate: regular rate Pulses: radial pulses present Skin General: no rashes or lesions noted Other: LMF ecchymosis and swelling with point tender to palpation dorsal DIPJ Neuro General: patient alert and patient awake Cognition: normal cognition Speech: speech normal Extrem General: capillary refill normal and normal exam except as noted (See skin exam) Psych Appearance: grossly normal Mental Status: mental status grossly normal Mood: congruent mood Affect: normal affect Speech and Movement: speech and movement normal Attitude: cooperative Coding Level of Care Code Off vis,est,level 4 Diagnoses Closed fracture of distal phalanx of left middle finger S62.633A Assessment and Plan Assessment and Plan (1) Closed fracture of distal phalanx of left middle finger: Status: Acute Plan: Repeat left middle finger radiographs taken today validates fracture of the distal phalanx involving the DIPJ per my review, with radiologist interpretation pending at the time patient discharged. C9 submitted to (more content not included)... Normal [facility] Emergency Department Summary on 03-03-2024 Emergency Department Summary [facility] Medical Records Department [address] [place] [address] Emergency Department Summary 03/03/24 MR#: [id number] Acct: [id number] Name: SARIAH BHAGAT Rep #: [id number] : 1960 63 From: Vaibhav Quiroga MD PCP: SEFERINO Chong Status:REG ER Location: ED HPI History of Present Illness Chief Complaint: Upper Extremity Injury Informant: patient Narrative Narrative: 63-year-old female who was hurt at work tonight and presents for evaluation of her injury. 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 She states the index finger is feeling fine now is really just the middle finger she is having trouble bending. [facility] Medical History Osteoarthritis of right knee Synovial cyst of popliteal space [Serra], right knee Colitis Easy bruising Restless legs History of GI bleed History of IBS Gastric reflux Smoker IBS (irritable bowel syndrome) Fx. left wrist Bronchitis Fibromyalgia Depression Seasonal allergies Home Medications ???Medication ???Instructions ???Recorded ???Last Taken ???Type fexofenadine 180 mg tablet 180 mg PO DAILY seasonal allergies 04/08/21 Unknown History mesalamine 500 mg capsule,extended 1,000 mg PO ONCE 10/19/22 Unknown History release cefdinir 300 mg capsule 300 mg PO BID #20 caps 01/24/24 Unknown Rx celecoxib 100 mg capsule 100 mg PO BID #60 caps 01/24/24 Unknown Rx cyclobenzaprine 5 mg tablet 5 mg PO TID PRN muscle spasm #45 01/24/24 Unknown Rx tabs levalbuterol tartrate 45 2 inh inhalation Q6H #15 grams 01/24/24 Unknown Rx mcg/actuation aerosol inhaler venlafaxine 150 mg 150 mg PO DAILY #30 caps 01/24/24 Unknown Rx capsule,extended release 24 hr (Effexor XR) Allergy/AdvReac Type Severity Reaction Status Date / Time etodolac Allergy Hives Verified 03/03/24 20:52 amoxicillin (From Augmentin) AdvReac Severe N V Verified 03/03/24 20:52 clavulanic acid (From AdvReac Severe N V Verified 03/03/24 20:52 Augmentin) Family History Mother Hypertension Father Hypertension Colon cancer Brother Colon cancer Other Respiratory disease Surgical History History of colonoscopy History of endometrial ablation History of appendectomy Social History household members: none Smoking Status: Current every day smoker tobacco type: cigarettes alcohol intake: never substance use type: does not use ROS ROS ED Constitutional Constitutional ED: Denies chills or fever(s) Musculoskeletal Musculoskeletal: Reports extremity pain; Denies neck pain Integumentary Denies Abrasions, rash or wounds Neurologic Neurologic: Denies paresthesias or weakness EXAM Physical Exam Const Vital Signs: 03/03/24 20:51 Temperature 97 F L Temperature Source Temporal Pulse Rate 85 Respiratory Rate 14 Blood Pressure 147/89 H Blood Pressure Mean 108 Pulse Ox 97 Oxygen Delivery Method Room Air Positive well nourished and well developed General Appearance ED: well developed and NAD Neck full ROM and supple Back/Spine normal ROM and normal to inspection Extremity Extremity Narrative: There is a trigger finger in the left index finger but she can move it fully without any difficulty and there is no tenderness or swelling or bruising or subungual hematoma. With regards to the left middle finger, there is ecchymosis and swelling and tenderness about the DIPJ, the PIPJ is more tender, she is able to extend, she is able to flex the FDP and FDS although limited range of motion with regards to both due to pain, and there is no subungual hematoma but the distal phalanx is tender as well. No other areas of trauma or tenderness in this hand. Neuro oriented x3, no focal motor deficits and no sensory deficits noted Sensorium / Orientation: alert Psych mental status grossly normal and thought process normal Skin no wounds Rashes: no rashes MDM MDM MDM Narrative Medical decision making narrative: Three-view x-ray series of the left hand on my interpretation show what appears to be a chip fracture at the base of the distal phalanx dorsally of the middle finger. Radiology called that unremarkable but I think that is incorrect. This is where she is the most tender and swollen and ecchymotic. I am placing her in an AlumaFoam cage splint around that joint, given her appropriate work restrictions and have her follow-up with [employer]. Discharge Plan (more content not included)... Normal [facility] Hand Min 3 Viewson 4 Hand Min 3 Views [facility] [address], [place] [id number] Hand Min 3 Views MR#: [id number] Acct: [id number] Name: SARIAH BHAGAT Rep #: [id number] : 1960 F 63 From: Eduardo nolasco MD PCP: NIMESH ChongC Status: REG ER Study: Hand Min 3 Views Date of Exam: 03/03/24 Exam# [id number] Ordering Dr: [place] [id number] STUDY: X-RAY - LEFT HAND REASON FOR EXAM: Female, 63 years old. injury -- attn: fingers 2-3 TECHNIQUE: 3 view(s) of the hand. COMPARISON: None. FINDINGS: Normal radiocarpal articulation. Normal distal radioulnar joint. Normal visualized carpal bones. Normal carpal articulations Normal carpometacarpal articulation of the thumb. Normal second through fifth carpometacarpal joints. Normal metacarpi. Normal metacarpophalangeal joint of the thumb. Normal interphalangeal joint of the thumb. Normal proximal and distal phalanges of the thumb. Normal metacarpophalangeal joints of the second through fifth fingers. There is diffuse articular joint space narrowing of the proximal and distal interphalangeal joints of the second through fifth fingers, but without erosive changes or periarticular soft tissue swelling. Normal phalanges of the second through fifth fingers. The soft tissue structures are unremarkable. RAD/Hand Min 3 Views IMPRESSION: Degenerative changes. No fracture or dislocation. Electronically Signed: Eduardo Keith MD at 22:17 EDT , CC: SEFERINO Jiménez; Dr. Vaibhav Quiroga MD Supervisor Network Control Operators: Signed Normal [facility] Orthopedic Visit Reporton Orthopedic Visit Report [facility] [address] [place] [address] OFFICE VISIT Date of Service: 08/23/23 MR#: [id number] Acct: [id number] Name: SARIAH BHAGAT ANN Rep #: [id number] : 1960 Provider: Dr. Olayinka craft MD Age/Sex: 62/F Location: [facility] [place] Status: Signed with Addenda ADDENDUM by Alba Yen on 08/23/23 at 1312 Office Procedure Documentation entered by Alba Yen 08/23/23 13:12: Ortho Injections Injections Yes Knee Right Details: Obtained consent for injection. Under sterile conditions, injected the patients right knee with 2cc Kenalog 4cc Bupivacaine. The patient tolerated the injection well without any noted complication. Patient should call our office if redness develops, pain worsens or if they have any concerns. Office Meds Kenalog 40 mg/mL suspension for injection Performing Provider: Olayinka Bell MD Performing Location: [facility] Administered by: Olayinka Bell MD on 08/23/23 13:11 Dose Route Admin Location Dispensed Lot Number Expiration Date NDC Man ufacturer 80 mg intra-articular right knee 2 mL [id number] 01/08/24 7403-7904-13 [facility] Comments: Bupivacaine 0.25% 4cc lot : [id number] exp : 09/09/23 [facility] : 5608-7768-98 Date cc: * Signed Intake Vital Signs 08/18/23 14:09 08/20/23 12:45 08/23/23 10:15 Height 5 ft 3 in 5 ft 3 in 5 ft 3 in Weight: 119 lb BMI 21.0 Intake Visit Reasons: RIGHT KNEE Is patient in pain?: Yes Pain scale (1-10): 6 Allergies etodolac Allergy (Verified 08/23/23 10:16) Hives amoxicillin [From Augmentin] Adverse Reaction (Severe, Verified 08/23/23 10:16) N V clavulanic acid [From Augmentin] Adverse Reaction (Severe, Verified 08/23/23 10:16) N V Medications fexofenadine 180 mg tablet 180 mg PO DAILY seasonal allergies 04/08/21 [History Confirmed 08/23/23] duloxetine 60 mg capsule,delayed release 60 mg PO DAILY fibromyalgia #90 caps 10/19/22 [Rx Confirmed 08/23/23] mesalamine 500 mg capsule,extended release 1,000 mg PO ONCE 10/19/22 [History Confirmed 08/23/23] albuterol sulfate 90 mcg/actuation aerosol inhaler (Ventolin HFA) 2 puff inhalation Q4H PRN asthma #8.5 grams 08/18/23 [Rx Confirmed 08/23/23] clarithromycin 500 mg tablet 500 mg PO BID #20 tabs 08/18/23 [Rx Confirmed 08/23/23] PFSH Medical History (Updated 08/23/23 @ 10:34 by Olayinka Bell MD) Bronchitis Colitis Depression Easy bruising Fibromyalgia Fx. left wrist Gastric reflux History of GI bleed History of IBS IBS (irritable bowel syndrome) Osteoarthritis of right knee Restless legs Seasonal allergies Smoker Synovial cyst of popliteal space [Serra], right knee Surgical History History of appendectomy History of colonoscopy History of endometrial ablation Family History Mother Hypertension Father Hypertension Colon cancer Brother Colon cancer Other Respiratory disease Social History household members: none Smoking Status: Current every day smoker tobacco type: cigarettes alcohol intake: never substance use type: does not use HPI RIGHT KNEE Details: This documentation accurately reflects the service provided and the decisions made by me, Dr. Olayinka Bell MD 08/23/23 0840. Part of today???s visit was documented by [ ], acting as scribe. SARIAH BHAGAT is a 62 year old F here today for R knee pain ... per referral notes R knee pain and has a lump on the back of the knee. fell down carpeted x4 and caught self on the banister and twisted R leg and had R knee swelling and but the back to the knee is fluctuant. had a bakers cyst of the knee, tx conservatively. 7 days ago, painful medially and posteromedially. bad in the AM, but a bit better with walking, sore in the evening though. catching / locking - no. no change to the swelling. Ortho Exam General General: Yes no acute distress Neurologic: Yes alert and Yes oriented x3 Psychologic: Yes reasonable and appropriate Right Knee Skin/Wound: Yes CDI, No erythema, No ecchymosis and No swelling Knee ROM: Yes ROM-Flexion 0-140 Examination: Yes Med jt line tenderness, No Lat jt line tenderness, No TTP inf pole patella, Yes Crepitus, Yes Pain with flexion, No Pain with extention, Yes Annie's Test, No TTP Patellar tendon, No TTP Tibial tubercle, No TTP Pes Anserine and No Illiotibial band tenderness Quad Atrophy: No Stability: NML: Anterior Drawer, NML: Sanaz, NML: Posterior Drawer, NML: Valgus 0, NML: Valgus 30, NML: Varus 0 and NML: Varus 30 Patella Translation: 2 Apprehension with Lateral Translation: (more content not included)... Normal [facility] Knee 4 or More Viewson 08-19 Knee 4 or More Views [facility] [address] [place] [address] Knee 4 or More Views MR#: [id number] Acct: [id number] Name: SARIAH BHAGAT Rep #: [id number] : 1960 F 62 From: Lang Jean MD PCP: SEFERINO Chong Status: REG CLI Study: Knee 4 or More Views Date of Exam: 08/19/23 Exam# [id number] Ordering Dr: Abner Jiménez NP [place] [id number] STUDY: X-RAY - RIGHT KNEE REASON FOR EXAM: Female, 62 years old. traumatic fal down carpted steps x4 twisted TECHNIQUE: 4 view(s) of the knee. COMPARISON: None. FINDINGS: Normal visualized distal femur. Normal visualized proximal tibia and fibula. Normal proximal tibiofibular articulation. Normal medial femorotibial compartment. Narrowed lateral femorotibial compartment with minor spurring of the lateral femoral and tibial condyles. Normal patellofemoral articulation. The soft tissue structures are unremarkable. RAD/Knee 4 or More Views IMPRESSION: Mild degenerative change. No acute fracture or dislocation. Electronically Signed: Lang Jean MD at 17:10 EST Reading Location ID and State: [address] [place] [address] Tel , Service support , CC: SEFERINO Jiménez Supervisor Network Control Operators: Signed Normal [facility] Absolute lymphocyte countOrd ered By: Abner Jiménez on 11-24-2022 Lymphocytes Auto (Unsp spec) [#/Vol] 0.98 10*3/uL 0.83-4.51 [facility] Basophil percentageOrdered B y: Abner Jiménez on 11-24-2022 Basophils/100 WBC (Bld) 0.3 % 0-1 [facility] Bilirubin [Mass/Vol] 0.30 mg/dL 0.20-1.00 [facility] Comment on above: For patients on eltr ombopag therapy, use of Dimension [place] TBIL is not recommended. Chloride [Moles/Vol] 109 mmol/L 98-107 [facility] Eosinophils/100 WBC (Bld) 1.6 % 0-5 [facility] Glucose [Mass/Vol] 99 mg/dL 74-106 [facility] Neutrophils (Bld) [#/Vol] 1.6 10*3/uL 2.0-7.7 [facility] Neutrophils/100 WBC (Bld) 52.4 % 47-70 [facility] Potassium [Moles/Vol] 3.4 mmol/L 3.5-5.1 [facility] Protein [Mass/Vol] 6.6 g/dL 6.4-8.2 [facility] Sodium [Moles/Vol] 139 mmol/L 136-145 [facility] WBC (Bld) [#/Vol] 3.1 10*3/uL 4.4-11.0 [facility] Blood erythrocytes count (nu mber/volume)Ordered By: Abner Jiménez on 11-24-2022 RBC (Bld) [#/Vol] 4.90 10*6/uL 4.2-5.4 [facility] Blood hemoglobin measurement (mass/volume)Ordered By: Abner Jiménez on 11-24-2022 Hemoglobin (Bld) [Mass/Vol] 14.8 g/dL 12.0-15.0 [facility] Blood lymphocytes/100 leukoc ytesOrdered By: Abner Jiménez on 11-24-2022 Lymphocytes/100 WBC (Bld) 32.0 % 19-41 [facility] Blood monocytes/100 leukocyt esOrdered By: Abner Jiménez on 11-24-2022 Monocytes/100 WBC (Bld) 13.7 % 0-10 [facility] Blood platelet mean volumeOr dered By: Abner Jiménez on 11-24-2022 Platelet mean volume (Bld) [Entitic vol] 10.7 fL 6.2-12.0 [facility] Determination of erythrocyte mean corpuscular volume (MCV)Ordered By: Abner Jiménez on 11-24-2022 MCV (RBC) [Entitic vol] 92.0 fL 81-99 [facility] Hematocrit Auto (Bld) [Volum e fraction]Ordered By: Abner Jiménez on 11-24-2022 Hematocrit (Bld) [Volume fraction] 45.1 % 37-47 [facility] Laboratory - Chemistry and C hemistry - challengeOrdered By: Abner Jiménez on 11-24-2022 ALP [Catalytic activity/Vol] 70 U/L 45-117 [facility] ALT [Catalytic activity/Vol] 21 U/L 13-56 [facility] CO2 [Moles/Vol] 29.0 mmol/L 21.0-32.0 [facility] Globulin (S) [Mass/Vol] 3.1 g/dL 2.2-4.2 [facility] Urea nitrogen/Creatinine [Mass ratio] 9.7 mg/mg 10-20 [facility] - Hematology and Cell countsOrdered By: Abner Jiménez on 11-24-2022 Erythrocyte distribution width (RBC) [Entitic vol] 42.6 fL 35.1-43.9 [facility] Erythrocyte distribution width (RBC) [Ratio] 12.6 % 11.6-14.6 [facility] Immature granulocytes/100 WBC (Bld) 0.000 % 0.0-0.9 [facility] Comment on above: IG% - Immature Granu locytes (promyelocytes, myelocytes and metamyelocytes) > 1% indicates that a LEFT SHIFT is Present. MCH (RBC) [Entitic mass] 30.2 pg 27.0-32.0 [facility] Nucleated RBC/100 WBC (Bld) [Ratio] 0 % 0-5 [facility] MCHC Auto (RBC) [Mass/Vol]Or dered By: Abner Jiménez on 11-24-2022 MCHC (RBC) [Mass/Vol] 32.8 g/dL 32-36 [facility] No Panel InformationOrdered By: Abner Jiménez on 11-24-2022 Estimated GFR (MDRD) Amer 127 mL/min >60 [facility] Comment on above: GFR Calc Estimated GFR (MDRD) Non-Af Amer 105 mL/min >60 [facility] Comment on above: Non- GFR Calc Platelets bldOrdered By: Kristopher Jiménez on 11-24-2022 Platelets (Bld) [#/Vol] 186 10*3/uL 150-450 [facility] Serum or plasma albumin titi urement (mass/volume)Ordered By: Abner Jiménez on 11-24-2022 Albumin [Mass/Vol] 3.5 g/dL 3.2-5.0 [facility] Serum or plasma albumin/glob ulin mass ratioOrdered By: Abner Jiménez on 11-24-2022 Albumin/Globulin [Mass ratio] 1.1 {ratio} 0.9-2.4 [facility] Serum or plasma calcium titi urement (mass/volume)Ordered By: Abner Jiménez on 11-24-2022 Calcium [Mass/Vol] 8.8 mg/dL 8.5-10.1 [facility] Serum or plasma creatinine m easurement (mass/volume)Ordered By: Abner Jiménez on 11-24-2022 Creatinine [Mass/Vol] 0.62 mg/dL 0.55-1.02 [facility] Comment on above: The validity of the calculated GFR & GFRAA in patients over 70 years has not been determined. Clinical correlation is essential. Serum or plasma urea nitroge n measurement (mass/volume)Ordered By: Abner Jiménez on 11-24-2022 Urea nitrogen [Mass/Vol] 6 mg/dL 7-18 [facility] Thin prep Papanicolaou smear with manual screeningOrdered By: Abner Jiménez on 11-24-2022 Thin prep Papanicolaou smear with manual screening 16 U/L 15-37 [facility] Thin prep Papanicolaou smear with manual screening 1 5-15 [facility] Absolute lymphocyte counton 12-31-2021 Lymphocytes Auto (Unsp spec) [#/Vol] 1.57 10*3/uL 0.83-4.51 [facility] Work Phone: Basophil percentageon 2021 Basophils/100 WBC (Bld) 0.2 % 0-1 [facility] Work Phone: Chloride [Moles/Vol] 103 mmol/L 98-107 [facility] Work Phone: Eosinophils/100 WBC (Bld) 1.9 % 0-5 [facility] Work Phone: Glucose [Mass/Vol] 118 mg/dL 74-106 [facility] Work Phone: Comment on above: Fasting Glucose resu lt from 100 to 125 mg/dL suggests IMPAIRED HOMEOSTASIS per A.D.A. criteria. Neutrophils (Bld) [#/Vol] 3.3 10*3/uL 2.0-7.7 [facility] Work Phone: Neutrophils/100 WBC (Bld) 57.6 % 47-70 [facility] Work Phone: [phone] Potassium [Moles/Vol] 3.2 mmol/L 3.5-5.1 [facility] Work Phone: [phone] Sodium [Moles/Vol] 139 mmol/L 136-145 [facility] Work Phone: [phone] WBC (Bld) [#/Vol] 5.8 10*3/uL 4.4-11.0 [facility] Work Phone: [phone] Blood erythrocytes count (nu mber/volume)on 12-31-2021 RBC (Bld) [#/Vol] 5.26 10*6/uL 4.2-5.4 [facility] Work Phone: Blood hemoglobin measurement (mass/volume)on 12-31-2021 Hemoglobin (Bld) [Mass/Vol] 16.0 g/dL 12.0-15.0 [facility] Work Phone: Blood lymphocytes/100 leukoc yteson 12-31-2021 Lymphocytes/100 WBC (Bld) 27.3 % 19-41 [facility] Work Phone: [phone] Blood monocytes/100 leukocyt eson 12-31-2021 Monocytes/100 WBC (Bld) 12.0 % 0-10 [facility] Work Phone: [phone] Blood platelet mean volumeon 12-31-2021 Platelet mean volume (Bld) [Entitic vol] 10.3 fL 6.2-12.0 [facility] Work Phone: Determination of erythrocyte mean corpuscular volume (MCV)on 05-25-2022 MCV (RBC) [Entitic vol] 91.4 fL 81-99 [facility] Work Phone: [phone] Hematocrit Auto (Bld) [Volum e fraction]on 12-31-2021 Hematocrit (Bld) [Volume fraction] 48.1 % 37-47 [facility] Work Phone: [phone] Laboratory - Chemistry and C hemistry - challengeon 12-31-2021 CO2 [Moles/Vol] 32.0 mmol/L 21.0-32.0 [facility] Work Phone: [phone] Urea nitrogen/Creatinine [Mass ratio] 25.5 mg/mg 10-20 [facility] Work Phone: [phone] Laboratory - Hematology and Cell countson 12-31-2021 Erythrocyte distribution width (RBC) [Entitic vol] 41.1 fL 35.1-43.9 [facility] Work Phone: [phone] Erythrocyte distribution width (RBC) [Ratio] 12.4 % 11.6-14.6 [facility] Work Phone: [phone] Immature granulocytes/100 WBC (Bld) 1.000 % 0.0-0.9 [facility] Work Phone: [phone] Comment on above: IG% - Immature Granu locytes (promyelocytes, myelocytes and metamyelocytes) > 1% indicates that a LEFT SHIFT is Present. MCH (RBC) [Entitic mass] 30.4 pg 27.0-32.0 [facility] Work Phone: [phone] Nucleated RBC/100 WBC (Bld) [Ratio] 0 % 0-5 [facility] Work Phone: [phone] MCHC Auto (RBC) [Mass/Vol]on 12-31-2021 MCHC (RBC) [Mass/Vol] 33.3 g/dL 32-36 [facility] Work Phone: [phone] No Panel Informationon 12-31 Estimated Creatinine Clearance Calc 3.05 ml/min [facility] Work Phone: [phone] Estimated GFR (MDRD) Amer 109 mL/min >60 [facility] Work Phone: [phone] Comment on above: GFR Calc Estimated GFR (MDRD) Non-Af Amer 90 mL/min >60 [facility] Work Phone: [phone] Comment on above: Non- GFR Calc Platelets bldon 12-31-2021 Platelets (Bld) [#/Vol] 242 10*3/uL 150-450 [facility] Work Phone: [phone] Serum or plasma calcium titi urement (mass/volume)on 12-31-2021 Calcium [Mass/Vol] 9.1 mg/dL 8.5-10.1 [facility] [place] [place] Work Phone: [phone] Serum or plasma creatinine m easurement (mass/volume)on 12-31-2021 Creatinine [Mass/Vol] 0.71 mg/dL 0.55-1.02 [facility] Work Phone: [phone] Comment on above: The validity of the calculated GFR & GFRAA in patients over 70 years has not been determined. Clinical correlation is essential. Serum or plasma urea nitroge n measurement (mass/volume)on 12-31-2021 Urea nitrogen [Mass/Vol] 18 mg/dL 7-18 [facility] Work Phone: [phone] Thin prep Papanicolaou smear with manual screeningon 12-31-2021 Thin prep Papanicolaou smear with manual screening 4 5-15 [facility] Work Phone: [phone] Culture, urineon 11-24-2021 Bacteria identified Cx Nom (U) Escherichia coli [facility] Work Phone: [phone] Laboratory - Chemistry and C hemistry - challengeon 11-24-2021 Bilirubin Ql (U) Negative [facility] Work Phone: [phone] Glucose Ql (U) Negative [facility] Work Phone: [phone] Ketones Ql (U) Negative [facility] Work Phone: [phone] pH (U) 6.0 [pH] [facility] Work Phone: [phone] Specific gravity (U) [Rel density] 1.025 [facility] Work Phone: [phone] Urobilinogen (U) [Mass/Vol] 0.0073494 mg/dL [facility] Work Phone: Laboratory - Hematology and Cell countson 11-24-2021 Hemoglobin Ql (U) Negative [facility] Work Phone: Laboratory - Specimen inform ationon 11-24-2021 Clarity (U) Clear [facility] Work Phone: Color (U) STRAW [facility] Work Phone: Laboratory - Urinalysison Nitrite Ql (U) Negative [facility] Work Phone: Protein Ql (U) Negative [facility] Work Phone: No Panel Informationon 11-24 Urine Bacteria None Seen [facility] Work Phone: Urine Leukocytes Negatve [facility] Work Phone: Urine Microscopic RBC None Seen [facility] Work Phone: Urine Microscopic WBC None Seen [facility] Work Phone: Urine Non-Hemolyzed Blood Negative [facility] Work Phone: CNOVon 02-29-2020 CNOV Office Visit ([facility] ) SARIAH BHAGAT ([id number]) 1960 F Date Time Provider Department 02/29/20 9:45 AM FLORINDA MARCOS) [facility] During your visit today, we recorded the following information about you: Temperature Pulse Respiration Blood pressure 97.9 degrees 81/minute 16/minute 128/84 Weight 58 kg Florinda Marcos PA-C 02/29/2020 10:59 AM Signed This note was created using NoteWriter. Subjective Sariah Bhagat is a 59 year old female. HPI Patient presents with a chief complaint of right lower eyelid drainage and swelling. She has had a stye in the eye in the past and thought maybe that's what was going on. She started to get swelling noted on her face so she came in for evaluation. No fever or chills. She does not wear contacts. She does wear glasses. No blurry or double vision. No pain with moving the eye. No congestion or cough. No sore throat. Review of Systems Constitutional: Negative. HENT: Negative. Eyes: Positive for discharge, redness and itching. Negative for photophobia and visual disturbance. All other systems reviewed and are negative. PAST MEDICAL HISTORY Diagnosis Date - Abnormal glandular Papanicolaou smear of cervix Abn. Pap smear (cervix) - Depressive disorder, not elsewhere classified - Irritable bowel syndrome - Unspecified , without mention of complication, unspecified 09/15/2007 Miscarriage Current Outpatient Medications Medication Sig Dispense Refill - duloxetine (CYMBALTA) 60 mg ORAL capsule Take 60 mg by mouth once daily. - cephALEXin (KEFLEX) 500 mg capsule Take 1 capsule by mouth three times daily for 10 days. 30 capsule 0 - erythromycin ophthalmic ointment Use 1 application in the right eye daily at bedtime for 7 days. 1 g 0 - benzonatate (TESSALON PERLE) 100 mg capsule Take 1 capsule by mouth three times daily as needed for Cough. 30 capsule 0 - loratadine (CLARITIN) 10 mg ORAL tablet Take 10 mg by mouth once daily. - dicyclomine (BENTYL) 20 mg ORAL tablet Take (1) three times daily as necessary 90 Tab 5 No current facility-administered medications for this visit. PAST SURGICAL HISTORY Procedure Laterality Date - APPENDECTOMY 1992 - CERVIX UTERI CONIZA LP ELCTRO EXCI LEEP-Cervix - HYSTEROSCOPY, SURGICAL; WITH ENDOME 04/05/08 Novasure - L'SCOPE REM ADNEX W/PART/TOT OOPH/SALP 05/30/09 RSO - LIGATE FALLOPIAN TUBE 11/01/07 Laparascopic w/ filshie clips FAMILY HISTORY Problem Relation Age of Onset - Colon Cancer Father - Hypertension Father Social History Tobacco Use - Smoking status: Current Every Day Smoker Years: 20.00 Types: Cigarettes Last attempt to quit: 04/09/2014 Years since quittin.8 - Smokeless tobacco: Never Used - Tobacco comment: smokes 1-2 cigarettes daily Substance Use Topics - Alcohol use: No - Drug use: No Objective BP 128/84 Pulse 81 Temp 36.6 ?C (97.9 ?F) (Tympanic) Resp 16 Wt 58 kg (127 lb 12.8 oz) LMP 03/14/2008 SpO2 96% Physical Exam Vitals signs reviewed. Constitutional: Appearance: Normal appearance. HENT: Head: Normocephalic and atraumatic. Eyes: Comments: Patient has swelling and redness of the medial right lower eyelid with the head of the stye internally visible on the conjunctiva. There is some erythema and swelling of the lower periorbital area as well. No pain with EOMI. No discharge or drainage from the eye. Neck: Musculoskeletal: Normal range of motion. Cardiovascular: Rate and Rhythm: Normal rate and regular rhythm. Heart sounds: Normal heart sounds. Pulmonary: Effort: Pulmonary effort is normal. Breath sounds: Normal breath sounds. Skin: General: Skin is warm and dry. Neurological: Mental Status: She is alert. Assessment and Plan ASSESSMENT/PLAN: 1. Hordeolum internum of right lower eyelid - ICD9: 373.12, ICD10: H00.[address] her on an oral antibiotic due to the amount of swelling and redness. Also given erythromycin topical and recommended she do warm compresses several times a day. If not improving follow up with ophthalmology. Patient agreeable with plan. Florinda Marcos PA-C Referring Provider: SELF [[id number]] Allergies As of Date: 02/29/2020 Noted Allergy Reaction DAYPRO (OXAPROZIN) 12/10/2009 6 - Diarrhea ETODOLAC 12/10/2009 6 - Diarrhea Date Reviewed: 02/29/2020 Reviewed by: Harika Porter Billing Supervisor - Fully Assessed Reason for Visit: Eye Problem [43] Cmt: (right) eye red/itchy/drainage x 1 day Primary Visit Diagnosis:Hordeolum internum of right lower eyelid [H00.022] Order(s):cephALEXin (KEFLEX) 500 mg capsuleTake 1 capsule by mouth three times daily for 10 days.Disp: 30 capsuleRfl: 0 erythromycin ophthalmic ointmentUse 1 application in the right eye daily at bedtime for 7 days.Disp: 1 gRfl: 0 Prescriptions as of 02/29/2020 Sig: * DULOXETINE 60 MG CAPSULE,RAMÓN* Take 60 mg by mouth once yamile* CEPHALEXIN 500 MG CAPSULE Take 1 capsule by mouth three* ERYTHROMYCIN 5 MG/GRAM (0.5 %* Use 1 application in the righ* BENZONATATE 100 MG CAPSULE Take 1 capsule by mouth three* * LORATADINE 10 MG TABLET Take 10 mg by mouth once yamile* * DICYCLOMINE 20 MG TABLET Take (1) three times daily as* Problem List As Of Date 02/29/2020 Noted Resolved TOBACCO USE DISORDER [F17.200] 10/27/2007 ANXIETY GENERALIZED [F41.1] 10/27/2007 Excessive or Frequent Menstruation [N92.0] 02/17/2008 06/26/2009 Metrorrhagia [N92.1] 02/17/2008 06/26/2009 LUMP OR MASS IN BREAST [N63.0] 02/17/2008 DYSMENORRHEA [N94.6] 04/04/2008 IRRITABLE COLON [K58.9] 05/29/2008 RLQ Abdominal Pain [R10.31] 05/27/2009 08/13/2009 Other and Unspecified Ovarian Cyst [N83.209] 05/27/2009 Prescriptions ordered this encounter Disp Refills Start End CEPHALEXIN 500 MG CAPSULE 30 c* 0 02/29/2020 03/10/2020 Route: ORAL Sig: Take 1 capsule by mouth three times daily for 10 days. ERYTHROMYCIN 5 MG/GRAM (0.5 %) EYE O* 1 g 0 02/29/2020 03/07/2020 Route: RIGHT EYE Sig: Use 1 application in the right eye daily at bedtime for 7 days. Encounter Status:Closed by FLORINDA MARCOS PA-C on 02/29/20 [facility] PROGRESSon 02-29-2020 PROGRESS HNO ID: [id number] Author: Florinda Marcos (Pa) Service: ? Author Type: Physician Commercial Production Editor Type: Progress Notes Filed: 02/29/2020 10:59 AM Note Text: This note was created using NoteWriter. Subjective Sariah Bhagat is a 59 year old female. HPI Patient presents with a chief complaint of right lower eyelid drainage and swelling. She has had a stye in the eye in the past and thought maybe that's what was going on. She started to get swelling noted on her face so she came in for evaluation. No fever or chills. She does not wear contacts. She does wear glasses. No blurry or double vision. No pain with moving the eye. No congestion or cough. No sore throat. Review of Systems Constitutional: Negative. HENT: Negative. Eyes: Positive for discharge, redness and itching. Negative for photophobia and visual disturbance. All other systems reviewed and are negative. PAST MEDICAL HISTORY Diagnosis Date - Abnormal glandular Papanicolaou smear of cervix Abn. Pap smear (cervix) - Depressive disorder, not elsewhere classified - Irritable bowel syndrome - Unspecified , without mention of complication, unspecified 09/15/2007 Miscarriage Current Outpatient Medications Medication Sig Dispense Refill - duloxetine (CYMBALTA) 60 mg ORAL capsule Take 60 mg by mouth once daily. - cephALEXin (KEFLEX) 500 mg capsule Take 1 capsule by mouth three times daily for 10 days. 30 capsule 0 - erythromycin ophthalmic ointment Use 1 application in the right eye daily at bedtime for 7 days. 1 g 0 - benzonatate (TESSALON PERLE) 100 mg capsule Take 1 capsule by mouth three times daily as needed for Cough. 30 capsule 0 - loratadine (CLARITIN) 10 mg ORAL tablet Take 10 mg by mouth once daily. - dicyclomine (BENTYL) 20 mg ORAL tablet Take (1) three times daily as necessary 90 Tab 5 No current facility-administered medications for this visit. PAST SURGICAL HISTORY Procedure Laterality Date - APPENDECTOMY 1992 - CERVIX UTERI CONIZA LP ELCTRO EXCI LEEP-Cervix - HYSTEROSCOPY, SURGICAL; WITH ENDOME 04/05/08 Novasure - L'SCOPE REM ADNEX W/PART/TOT OOPH/SALP 05/30/09 RSO - LIGATE FALLOPIAN TUBE 11/01/07 Laparascopic w/ filshie clips FAMILY HISTORY Problem Relation Age of Onset - Colon Cancer Father - Hypertension Father Social History Tobacco Use - Smoking status: Current Every Day Smoker Years: 20.00 Types: Cigarettes Last attempt to quit: 04/09/2014 Years since quittin.8 - Smokeless tobacco: Never Used - Tobacco comment: smokes 1-2 cigarettes daily Substance Use Topics - Alcohol use: No - Drug use: No Objective BP 128/84 Pulse 81 Temp 36.6 ?C (97.9 ?F) (Tympanic) Resp 16 Wt 58 kg (127 lb 12.8 oz) LMP 03/14/2008 SpO2 96% Physical Exam Vitals signs reviewed. Constitutional: Appearance: Normal appearance. HENT: Head: Normocephalic and atraumatic. Eyes: Comments: Patient has swelling and redness of the medial right lower eyelid with the head of the stye internally visible on the conjunctiva. There is some erythema and swelling of the lower periorbital area as well. No pain with EOMI. No discharge or drainage from the eye. Neck: Musculoskeletal: Normal range of motion. Cardiovascular: Rate and Rhythm: Normal rate and regular rhythm. Heart sounds: Normal heart sounds. Pulmonary: Effort: Pulmonary effort is normal. Breath sounds: Normal breath sounds. Skin: General: Skin is warm and dry. Neurological: Mental Status: She is alert. Assessment and Plan ASSESSMENT/PLAN: 1. Hordeolum internum of right lower eyelid - ICD9: 373.12, ICD10: H00.[address] her on an oral antibiotic due to the amount of swelling and redness. Also given erythromycin topical and recommended she do warm compresses several times a day. If not improving follow up with ophthalmology. Patient agreeable with plan. Florinda Marcos PA-C Normal [facility] Vital Signs Date Time Vital Sign Value Performing Clinician Facility 08-23-2023 10:15-0500 Body height 160.02 cm [facility]ISTAlexis Jiménez [facility] Work Phone: [facility] 08-23-2023 10:15-0500 Body mass index (BMI) [Ratio] 21 kg/m2 SEFERINO Jiménez [facility] Work Phone: [facility] 08-23-2023 10:15-0500 Body weight 53.97 kg SEFERINO Jiménez [facility] Work Phone: [facility] 08-18-2023 14:09-0500 Body mass index (BMI) [Ratio] 20.9 kg/m2 SEFERINO Jiménez [facility] Work Phone: [facility] 08-18-2023 14:09-0500 Body temperature 97.8 [degF] SEFERINO Jiménez [facility] Work Phone: [facility] 08-18-2023 14:09-0500 Body weight 53.52 kg [facility]-C Abner Jiménez [facility] Work Phone: [facility] 08-18-2023 14:09-0500 Diastolic blood pressure 60 mm[Hg] [facility]-C Abner Jiménez [facility] Work Phone: [facility] 08-18-2023 14:09-0500 Heart rate 96 /min [facility]C Abner Jiménez [facility] Work Phone: [facility] 08-18-2023 14:09-0500 Respiratory rate 18 /min [facility]C Abner Jiménez [facility] Work Phone: [facility] 08-18-2023 14:09-0500 SaO2% (BldA) [Mass fraction] 98 % [facility]C Abner Jiménez [facility] Work Phone: [facility] 08-18-2023 14:09-0500 Systolic blood pressure 120 mm[Hg] [facility]-C Abner Jiménez [facility] Work Phone: [facility] 04-02-2023 20:26-0400 Heart rate 80 /min [facility]-C Abner Jiménez [facility] Work Phone: [facility] 04-02-2023 20:26-0400 Respiratory rate 18 /min [facility]C Abner Jiménez [facility] Work Phone: [facility] 04-02-2023 20:26-0400 SaO2% (BldA) [Mass fraction] 96 % [facility]-C Abner Jiménez [facility] Work Phone: [facility] 04-02-2023 18:12-0400 Body height 160.02 cm [facility]-C Abner Jiménez [facility] Work Phone: [facility] 04-02-2023 18:12-0400 Body mass index (BMI) [Ratio] 21.7 kg/m2 [facility]-C Abner Jiménez [facility] Work Phone: [facility] 04-02-2023 18:12-0400 Body temperature 98.1 [degF] [facility] SPECIALISTAlexis Jiménez [facility] Work Phone: [facility] 04-02-2023 18:12-0400 Body weight 55.79 kg [facility] SPECIALISTAlexis Jiménez [facility] Work Phone: [facility] 04-02-2023 18:12-0400 Diastolic blood pressure 99 mm[Hg] [facility] SPECIALISTAlexis Jiménez [facility] Work Phone: [facility] 04-02-2023 18:12-0400 Systolic blood pressure 140 mm[Hg] [facility]-Cole Jiménez [facility] Work Phone: [facility] 11-24-2022 17:56-0400 Body height 161.54 cm [facility] 11-24-2022 17:56-0400 Body mass index (BMI) [Ratio] 22 kg/m2 [facility] 11-24-2022 17:56-0400 Body temperature 97.7 [degF] [facility] 11-24-2022 17:56-0400 Body weight 57.6 kg [facility] 11-24-2022 17:56-0400 Diastolic blood pressure 80 mm[Hg] [facility] 11-24-2022 17:56-0400 Heart rate 92 /min [facility] 11-24-2022 17:56-0400 Respiratory rate 18 /min [facility] 11-24-2022 17:56-0400 SaO2% (BldA) [Mass fraction] 95 % [facility] 11-24-2022 17:56-0400 Systolic blood pressure 122 mm[Hg] [facility] 10-19-2022 19:28-0400 Body mass index (BMI) [Ratio] 21.9 kg/m2 [facility] 10-19-2022 19:28-0400 Body temperature 97 [degF] [facility] 10-19-2022 19:28-0400 Body weight 57.15 kg [facility] 10-19-2022 19:28-0400 Diastolic blood pressure 80 mm[Hg] [facility] 10-19-2022 19:28-0400 Heart rate 89 /min [facility] 10-19-2022 19:28-0400 Respiratory rate 18 /min [facility] 10-19-2022 19:28-0400 SaO2% (BldA) [Mass fraction] 96 % [facility] 10-19-2022 19:28-0400 Systolic blood pressure 138 mm[Hg] [facility] 12-31-2021 09:20-0400 Diastolic blood pressure 58 mm[Hg] [facility] Work Phone: 12-31-2021 09:20-0400 Heart rate 75 /min [facility] Work Phone: 12-31-2021 09:20-0400 Respiratory rate 16 /min [facility] Work Phone: 12-31-2021 09:20-0400 SaO2% (BldA) [Mass fraction] 97 % [facility] Work Phone: 12-31-2021 09:20-0400 Systolic blood pressure 138 mm[Hg] [facility] Work Phone: 12-31-2021 08:25-0400 Body height 1594.1 cm [facility] Work Phone: 12-31-2021 08:25-0400 Body mass index (BMI) [Ratio] 0 kg/m2 [facility] Work Phone: 12-31-2021 08:25-0400 Body temperature 97.6 [degF] [facility] Work Phone: 12-31-2021 08:25-0400 Body weight 2.26 kg [facility] Work Phone: 11-24-2021 18:59-0400 Body height 162.56 cm [facility] Work Phone: 11-24-2021 18:59-0400 Body mass index (BMI) [Ratio] 19.3 kg/m2 [facility] Work Phone: 11-24-2021 18:59-0400 Body temperature 975 [degF] [facility] Work Phone: 11-24-2021 18:59-0400 Body weight 51.25 kg [facility] Work Phone: 11-24-2021 18:59-0400 Diastolic blood pressure 70 mm[Hg] [facility] Work Phone: 11-24-2021 18:59-0400 Heart rate 115 /min [facility] Work Phone: 11-24-2021 18:59-0400 Respiratory rate 18 /min [facility] Work Phone: 11-24-2021 18:59-0400 SaO2% (BldA) [Mass fraction] 96 % [facility] Work Phone: 11-24-2021 18:59-0400 Systolic blood pressure 130 mm[Hg] [facility] Work Phone: 10-23-2021 18:06-0400 Body mass index (BMI) [Ratio] 19.5 kg/m2 [facility] Work Phone: 10-23-2021 18:06-0400 Body temperature 97.7 [degF] [facility] Work Phone: 10-23-2021 18:06-0400 Body weight 51.7 kg [facility] Work Phone: 10-23-2021 18:06-0400 Diastolic blood pressure 60 mm[Hg] [facility] Work Phone: 10-23-2021 18:06-0400 Heart rate 84 /min [facility] Work Phone: 10-23-2021 18:06-0400 Respiratory rate 18 /min [facility] Work Phone: 10-23-2021 18:06-0400 SaO2% (BldA) [Mass fraction] 97 % [facility] Work Phone: 10-23-2021 18:06-0400 Systolic blood pressure 110 mm[Hg] [facility] Work Phone: 04-06-2021 01:26-0400 Body height 154.9 cm Mil Krishna MD Work Phone: [facility] Work Phone: 04-06-2021 01:26-0400 Body mass index (BMI) [Ratio] 22.3 kg/m2 Mil Krishna MD Work Phone: [facility] Work Phone: 04-06-2021 01:26-0400 Body temperature 98.49 [degF] Mil Krishna MD Work Phone: [facility] Work Phone: 04-06-2021 01:26-0400 Body weight 53.52 kg Mil Krishna MD Work Phone: [facility] Work Phone: 04-06-2021 01:26-0400 Diastolic blood pressure 90 mm[Hg] Mil Krishna MD Work Phone: [facility] Work Phone: 04-06-2021 01:26-0400 Heart rate 95 /min Mil Krishna MD Work Phone: [facility] Work Phone: 04-06-2021 01:26-0400 Respiratory rate 12 /min Mil Krishna MD Work Phone: [facility] Work Phone: 04-06-2021 01:26-0400 SaO2% (BldA) [Mass fraction] 98 % Mil Krishna MD Work Phone: [facility] Work Phone: 04-06-2021 01:26-0400 Systolic blood pressure 129 mm[Hg] Mil Krishna MD Work Phone: [facility] Work Phone: Encounters Encounter Date Encounter Type Care Provider Facility Start: 08-13-2024 End: 08-13-2024 Emergency department patient visit ABNER JIMÉNEZ Facility:[facility] Start: 05-01-2024 End: 05-01-2024 ambulatory Abner Jiménez [facility] Facility:[facility] Start: 04-04-2024 End: 04-04-2024 ambulatory Abner Jiménez [facility] Facility:[facility] Start: 03-30-2024 End: 03-30-2024 ambulatory Abner Jiémnez [facility] Facility:[facility] Start: 03-21-2024 End: 03-21-2024 ambulatory Abner Jiménez [facility] Facility:[facility] Start: 03-06-2024 End: 03-06-2024 ambulatory Abner Jiménez [facility] Facility:[facility] Start: 03-06-2024 End: 03-06-2024 ambulatory Jasper WALLACE Facility:[facility] Start: 03-06-2024 End: 03-06-2024 ambulatory Jasper WALLACE Facility:[facility] Start: 03-03-2024 End: 03-03-2024 Emergency department patient visit Vaibhav Quiroga Facility:[facility] Start: 08-23-2023 End: 08-23-2023 Patient encounter procedure [facility]-C Abner Jiménez [facility] Work Phone: [facility] Work Phone: Start: 08-23-2023 End: 08-23-2023 ambulatory Abner Jiménez [facility] Facility:[facility] Start: 08-19-2023 End: 08-19-2023 ambulatory [facility]-C Abner Jiménez [facility] Work Phone: [facility] Work Phone: Start: 08-19-2023 End: 08-19-2023 Patient encounter procedure [facility]-C Abner Jiménez [facility] Work Phone: [facility]Radiology, [facility] Work Phone: Start: 08-19-2023 End: 08-19-2023 ambulatory Abner Jiménez [facility] Facility:[facility] Start: 04-02-2023 End: 04-02-2023 Emergency department patient visit [facility]-C Abner Jiménez [facility] Work Phone: [facility] Work Phone: Start: 04-02-2023 End: 04-02-2023 Patient encounter procedure [facility]-Cole Jiménez [facility] Work Phone: [facility] Work Phone: Start: 11-25-2022 End: 11-25-2022 ambulatory [facility] Work Phone: Start: 11-25-2022 End: 11-25-2022 Patient encounter procedure [facility], [facility] Start: 11-24-2022 End: 11-24-2022 ambulatory [facility] Work Phone: Start: 11-24-2022 End: 11-24-2022 Patient encounter procedure [facility]Laboratory, Specimen Start: 12-31-2021 End: 12-31-2021 Emergency department patient visit [facility] Start: 11-24-2021 End: 11-24-2021 Patient encounter procedure [facility], Specimen Start: 04-06-2021 End: 04-06-2021 Emergency department patient visit Mil Krishna MD Work Phone: [facility] Comment on above: Infective otitis ext elli of left ear (Primary Dx); Non-recurrent acute suppurative otitis media of left ear without spontaneous rupture of tympanic membrane Procedures Date Procedure Procedure Detail Performing Clinician Start: 08-19-2023 Radiologic examinati on of knee [facility]-Cole Jiménez [facility] Work Phone: Start: 04-02-2023 X-ray of both feet [facility] SPECIALISTAlexis Jiménez [facility] Work Phone: Start: 11-25-2022 Plain chest X-ray Start: 11-24-2021 Urine culture Plan of Treatment Date Care Activity Detail Author Start: 12-31-2021 Plain chest X-ray Chest PA and Later al [facility] Work Phone: Start: 04-09-2021 Influenza vaccination Flu vaccine (# 1) [facility] Work Phone: Start: 1974 COVID-19 Vaccine (1) COVID-19 Vaccin e (1) [facility] Work Phone: Patient Education [facility] Work Phone: Patient referral [facility] Work Phone: Immunizations Immunization Date Immunization Notes Care Provider Fa cility 12-03-2020 diphtheria, tetanus toxoids and acellular pertussis vaccine, unspecified formulation [facility] Work Phone: Payers Date Payer Category Payer Unknown [id number] 2023 Self-pay [id number] 2013 Unknown [id number] Unknown [id number] 2.16.8 [id number] Unknown [id number] 2.16.8 [id number] Unknown [id number] 2.16.8 [id number] Unknown [id number] 2.16.8 [id number] Unknown [id number] 2.16.8 [id number] Unknown [id number] 2.16.8 [id number] Unknown [id number] 2.16.8 [id number] Unknown [id number] 2.16.8 [id number] Unknown [id number] 2.16.8 [id number] Unknown [id number] 2.16.8 [id number] Unknown [id number] 2.16.8 [id number] Social History Date Type Detail Facility Start: 04-06-2021 Tobacco smoking stat us [facility]IS Current every day smoker [employer] Work Phone: History of tobacco use Cigarette Smoker [facility] Start: 04-06-2021 Cigarettes smoked current (pack per day) - Reported [facility] Work Phone: Start: 04-06-2021 Tobacco use and exposure Never used [employer] Start: 04-06-2021 Alcohol intake Lifetime non-d aliza (finding) [facility] Work Phone: Start: 04-06-2021 History SDOH Alcohol Frequency 1 [facility] [facility] Work Phone: Start: 1960 Sex Assigned At Not on file [facility] [employer] Work Phone: Exposure to SARS-CoV -2 (event) Not sure [facility] Start: 04-08-2021 End: 08-23-2023 Tobacco smoking status NHIS Unknown if ever smoked [facility] Start: 1960 Sex Assigned At Female [facility] Mental Status Date Assessment Result Facility 12-31-2021 Cognitive function Level Of Cons ciousness Awake;Alert;Appropriate [facility] Work Phone: Discharge summary 04-02-2023 Note Date & Type Note Facility 04-02-2023 Discharge summary Note Date/Time April 02, 2023 6:44pm [facility] Medical Records Department [address] [place] [address] Emergency Department Summary 04/02/23 MR#: [id number] Acct: [id number] Name: SARIAH BHAGAT ANN Rep #:[id number] : 1960 62 From: Paramjit Navarro MD PCP: SEFERINO Chong Status:REG ER Location: ED HPI History of Present Illness Chief Complaint: Lower Extremity Injury Narrative Narrative: Patient presents with left foot pain. Yesterday, at work, patient dropped a tour converter for [employer] on the top of her left foot. She was wearing boots. Is just been sore ever since. She isable to bear weight. No history of brittle or abnormal bone structure. No blood thinners. PFSH PFSH Medical History Bronchitis Colitis Depression Easy bruising Fibromyalgia Fx. left wrist Gastric reflux History of GI bleed History of IBS IBS (irritable bowel syndrome) Restless legs Seasonal allergies Smoker Home Medications fexofenadine 180 mg tablet 180 mg PO DAILY seasonal allergies 04/08/21 [History Last Taken Unknown] albuterol sulfate 90 mcg/actuation aerosol inhaler (Ventolin HFA) 2 puff inhalation Q4H PRN asthma #8.5 grams 12/31/21 [Rx Last Taken Unknown] duloxetine 60 mg capsule,delayed release 60 mg PO DAILY fibromyalgia #90 caps 10/19/22 [Rx Last Taken Unknown] mesalamine 500 mg capsule,extended release 1,000 mg PO ONCE 10/19/22 [History Last Taken Unknown] clarithromycin 500 mg tablet 500 mg PO BID #20 tabs 11/24/22 [Rx Last Taken Unknown] prednisone 20 mg tablet 40 mg (2 x 20 mg) PO DAILY #20 tabs 11/24/22 [Rx Last Taken Unknown] Allergy/AdvReac Type Severity Reaction Status Date / Time etodolac Allergy Hives Verified 04/02/23 18:12 amoxicillin [From Augmentin] AdvReac Severe N&V Verified 04/02/23 18:12 clavulanic acid AdvReac Severe N&V Verified 04/02/23 18:12 [From Augmentin] Family History Mother Hypertension Father Hypertension Colon cancer Brother Colon cancer Other Respiratory disease Surgical History History of appendectomy History of colonoscopy History of endometrial ablation Social History household members: none Smoking Status: Current every day smoker tobacco type: cigarettes alcohol intake: never substance use type: does not use ROS ROS ED Constitutional Constitutional ED: Denies chills or fever(s) Cardiovascular Cardiovascular: Denies chest pain or palpitations Respiratory/Chest Respiratory/Chest: Denies cough or dyspnea Gastrointestinal Gastrointestinal: Denies nausea or vomiting Musculoskeletal Musculoskeletal: Reports arthralgias Integumentary Denies Abrasions or rash Hematologic/Lymphatic Hematologic/Lymphatic: Denies easy bleeding or easy bruising Allergic/Immunologic Allergic/Immunologic ED: Denies urticaria EXAM Physical Exam Narrative Exam Narrative: Patient awake alert no acute distress sitting comfortably in bed. HEENT shows no trauma Cardiorespiratory shows easy unlabored breathing and normal saturations at 99% on room air. Extremities show possibly a small amount of swelling in the lateral midfoot. Mild tenderness but no deformity. Ankle calcaneus and Achilles are completely normal. Const Vital Signs: 04/02/23 18:12 Temperature 98.1 F Temperature Source Temporal Pulse Rate 80 Respiratory Rate 16 Blood Pressure 140/99 H Blood Pressure Mean 112 Pulse Ox 99 Oxygen Delivery Method Room Air MDM MDM MDM Narrative Medical decision making narrative: Plan up and interpretation the patient's three-view x-ray of the left foot showsno sign of fracture. Final reading is similar. Radiography Diagnostic Testing: Clinical Impression(s) from Imaging Studies Foot X-Ray 04/02/23 18:34 IMPRESSION: No acute findings. Electronically Signed: Juan M Bhatia MD at 19:18 EDT , Discharge Plan Triage Chief Complaint: Lower Extremity Injury ED Provider: Paramjit Navarro Dx/Rx/DC Orders Clinical Impression: Contusion of foot, left Instructions: ED Foot Contusion Prescriptions: No Action mesalamine 500 mg capsule, extended release 1,000 mg PO ONCE duloxetine 60 mg capsule,delayed release(DR/EC) 60 mg PO DAILY Qty: 90 3RF clarithromycin 500 mg tablet 500 mg PO BID Qty: 20 0RF prednisone 20 mg tablet 40 mg PO DAILY Qty: 20 0RF fexofenadine [No] 180 mg Tablet 180 mg PO DAILY albuterol sulfate [Ventolin HFA] 90 mcg/actuation HFA aerosol inhaler 2 puff inhalation Q4H PRN (Reason: asthma) Qty: 8.5 12RF Primary Care Provider: Abner Jiménez NP Referrals: Abner Jiménez NP, RENEWALS SPECIALIST-C [Primary Care Provider] - 3-5 Days if not improving Disposition Disposition: Home, Self Care What to do if you have Problems For any increased pain, shortness of breath, bleeding, nausea or vomiting, chestpain, or any unexpected problems, contact your Primary Care Provider. Call [facility] ([phone]) or report to the closest Emergency Room. Call 911 if necessary. 04/02/232005 <Electronically signed by Paramjit Navarro MD> Cosigner Signature (if applicable): CC: SEFERINO Jiménez ~ Signed [facility] Work Phone: Evaluation note Note Date & Type Note Facility Evaluation note Diagnosis Infective otitis externa of left ear- Primary Non-recurrent acute suppurative otitis media of left ear without spontaneous rupture of tympanic membrane documented in this encounter [facility] Work Phone: Evaluation note Note Date & Type Note Facility Evaluation note Diagnosis Onset Date Left otitis media acute Maxillary sinusitis acute Cystitis acute Fibromyalgia [facility] Work Phone: Evaluation note Note Date & Type Note Facility Evaluation note Diagnosis Onset Date Fibromyalgia acute Maxillary sinusitis acute Right otitis media acute Cough acute Post-COVID syndrome acute URI (upper respiratory infection) [facility] Work Phone: Evaluation note Note Date & Type Note Facility Evaluation note No assessment information availa [facility] Work Phone: Evaluation note Note Date & Type Note Facility Evaluation note Diagnosis Onset Date Effusion, right knee acute Maxillary sinusitis acute Pain in right knee acute Osteoarthritis of right knee acute Pain in right knee acute Synovial cyst of popliteal s pace [Serra], right knee acute [facility] Work Phone: Hospital Discharge instructions Attachments Note Date & Type Note Facility Hospital Discharge instructions The following attachments cannot be sent through Care Everywhere.Otitis Media (Icelandic)Otitis Externa (Icelandic)documented in this encounter [facility] Work Phone: Summary Purpose Family History No Family History Records Found Relationship Condition Age at Onset Recorded Date/T patricia Not Specified Disorder of respiratory system Unknown mother Hypertension Unknown father Hypertension Unknown Malignant neoplasm of colon Unknown brother Malignant neoplasm of colon Unknown Advance Directives No Advanced Directives Records Found Advance Directive Response Recorded Date/ Time Living Will No April 08 1 12:14pm Power of Program Director Substance Abuse No April 08 021 12:14pm Advance Directive Response Recorded Date/ Time Living Will No December 31, 2021 8 :44am Power of Program Director Substance Abuse No December 31, 2021 8:44am Advance Directive Response Recorded Date/ Time Living Will No April 02 3 6:42pm Power of Program Director Substance Abuse No April 02, 023 6:42pm Advance Directive Response Recorded Date/ Time Living Will No August 20 12:45pm Power of Program Director Substance Abuse No August 20, 2023 12:45pm Chief Complaint and Reason for Visit Chief Complaint Sinus infection scra tchy throat & ear complaints Urinary tract infection Reason for Visit Left otitis media Maxillary sinusitis Cystitis Fibromyalgia Chief Complaint Sinus infection scra tchy throat & ear complaints Urinary tract infection COVID Reason for Visit Left otitis media Maxillary sinusitis Cystitis Fibromyalgia Chief Complaint Sinus cough r ear pa in Upper respiratory infection W/cough Reason for Visit Fibromyalgia Maxillary sinusitis Right otitis media Cough Post-COVID syndrome URI (upper respiratory infection) Chief Complaint PA NON DOT DRUG & BA T SCREEN/ [facility] SCHAEFFLER lt foot Chief Complaint Lump/mass(R)knee EORDERS RIGHT KNEE Reason for Visit Effusion, right knee Maxillary sinusitis Pain in right knee Osteoarthritis of right knee Pain in right knee Synovial cyst of popliteal space [Serra], right knee Additional Source Comments INFORMATION SOURCE (unrecogn ized section and content) DATE CREATED AUTHOR 03/03/2020 [facility] DATE CREATED AUTHOR AUTHOR'S ORGANIZ ATION 05/14/2024 [facility] DATE CREATED AUTHOR AUTHOR'S ORGANIZ ATION 08/20/2024 [facility] Reason for Visit (unrecogniz ed section and content) Reason Comments Otalgia Ordered Prescriptions (unrec ognized section and content) Prescription Sig Dispensed Refills Start Date End Da te ciprofloxacin-dexamethaso ne (CIPRODEX) 0.3-0.1 % otic suspension Place 4 drops into the left ear 2 times daily for 7 days 1 Bottle 0 04/06/2021 04/13/2021 amoxicillin-clavulanate (AUGMENTIN) 875-125 MG per tablet Take 1 tablet by mouth 2 times daily for 7 days 14 tablet 0 04/06/2021 04/13/2021 Scheduled Active and Recently Administ ered Medications (unrecognized section and content) Medication Order 04/04/2021 04/05/2021 04/06/2021 ciprofloxacin (CILOXAN) 0.3 % ophthalmic solution 2 drop (COMPLETED) 2 drop, Left Ear, ONCE, On 04/06/21 at 0151, For 1 dose 0157 (Given - Provid er: Lizbeth Giullen RN) Goals (unrecognized section and content) Goals may be documented in a n alternate sectionGoals may be documented in an alternate sectionGoals may be documented in an alternate sectionGoals may be documented in an alternate sectionGoals may be documented in an alternate sectionGoals may be documented in an alternate section Care Teams (unrecognized sec tion and content) Team Status: Active Member Role Status Dates No Primary Care Physician Family Provider Active Abner Jiménez RENEWALS SPECIALIST, RENEWALS SPECIALIST-C Primary Care Provider Active Team Status: Inactive Member Role Status Dates Abner Jiménez RENEWALS SPECIALIST, RENEWALS SPECIALIST-C Primary Care Pr ovider, Attending Provider, Referring Provider Active Team Status: Inactive Member Role Status Dates Abner Troy RENEWALS SPECIALIST, RENEWALS SPECIALIST-C Primary Care Provider, Attend ing Provider Active Team Status: Active Member Role Status Dates Abner Troy RENEWALS SPECIALIST, RENEWALS SPECIALIST-C Primary Care Provider, Attend ing Provider Active Team Status: Inactive Member Role Status Dates Abner Troy RENEWALS SPECIALIST, RENEWALS SPECIALIST-C Primary Care Provider, Referr ing Provider Active Yovanny Agosto PA, PA Attending Provider Active Team Status: Inactive Member Role Status Dates Abner Jiménez RENEWALS SPECIALIST, RENEWALS SPECIALIST-C Primary Care Provider Active Dr. Paramjit Navarro MD Emergency Provider Active Team Status: Inactive Member Role Status Dates Abner Troy RENEWALS SPECIALIST, RENEWALS SPECIALIST-C Primary Care Provider, Referr ing Provider Active Olayinka Bell MD Attending Provider Active FOR RECORDS PERTAINING TO PATIENTS WHO ARE OR HAVE BEEN ENROLLED IN A CHEMICAL DEPENDENCY/SUBSTANCEABUSE PROGRAM, SOME INFORMATION MAY BE OMITTED. This clinical summary was aggregated from multiple sources. Caution should be exercised in using it in the provision of clinical care. This summary normalizes information from multiple sources, and as a consequence, information in this document may materially change the coding, format and clinical context of patient data. In addition, data may be omitted in some cases. CLINICAL DECISIONS SHOULD BE BASED ON THE PRIMARY CLINICAL RECORDS. [employer] provides no warranty or guarantee of the accuracy or completeness of information in this document.
[2025-01-26 22:43] LABS: Absolute Lymphocyte Count 1.72 X10^3/uL (0.83-4.51); Absolute Neutrophil Count 3.1 X10^3/uL (2.0-7.7); Basophil# 0.03 X10^3/uL; Basophil% 0.5 % (0-1); Eosinophils% 1.8 % (0-5); Hematocrit 42.1 % (37-47); Hemoglobin 14.1 g/dL (12.0-15.0); Lymphocyte # 1.72 X10^3/ul (0.83-4.51); Lymphocyte % 31.3 % (19-41); Mean Corp Hgb Conc 33.5 g/dL (32-36); Mean Corpuscular Hgb 30.7 pg (27.0-32.0); Mean Corpuscular Volume 91.7 fL (81-99); Mean Platelet Vol. 11.3 fl (6.2-12.0); Monocyte# 0.53 X10^3/uL; Monocyte% 9.7 % (0-10); NRBC Flagged by Analyzer 0 % (0-5); Neutrophil % 56.5 % (47-70); Platelet Count 193 K/mm3 (150-450); RBC Distribution Width CV 12.8 % (11.6-14.6); Red Blood Count 4.59 M/mm3 (4.2-5.4); White Blood Count 5.5 K/mm3 (4.4-11.0)
[2025-01-26 23:38] LABS: ALB/GLOB Ratio 1.7 RATIO (0.9-2.4); AST(SGOT) 27 U/L (<=31); Alanine Aminotransfer ALT/SGPT 24 U/L (<=34); Albumin, Serum 4.1 g/dL (3.4-4.8); Alkaline Phosphatase 72 U/L (35-104); Anion Gap 9 (5-15); BUN 14 mg/dL (4-19); BUN/Creat Ratio 18.2 RATIO (10-20); Calcium,Total 10.1 mg/dL (7.6-11.0); Carbon Dioxide 26.4 mmol/L (21.0-32.0); Chloride 107 mmol/L (98-108); Cholesterol 202 mg/dL (<=200); Creatinine, Serum 0.79 mg/dL (0.70-1.20); EST Glomerular Filtration Rate 85 (>60); Globulin 2.4 g/dL (2.2-4.2); Glucose 91 mg/dL (70-99); High Density Lipoprotein 57 mg/dL; Low Density Lipoprotein Calc. 130 mg/dL; Potassium 4.7 mmol/L (3.3-5.1); Protein, Total 6.5 g/dL (5.9-8.4); Sodium Level 142 mmol/L (133-145); Total Bilirubin 0.31 mg/dL (0.00-1.30); Triglycerides 79 mg/dL; Very Low Density Lipoprotein 16 mg/dL (5-40); cholesterol:hdl ratio screen 3.58
== END | disposition home or self-care (01) ==
PROVIDERS: PCP Nurse Practitioner; Referring Provider Nurse Practitioner; Visit Provider Nurse Practitioner
DX: K57.92 Diverticulitis of intestine, part unspecified, without perforation or abscess without bleeding (principal); F33.1 Major depressive disorder, recurrent, moderate; F41.9 Anxiety disorder, unspecified; M79.7 Fibromyalgia; K58.9 Irritable bowel syndrome, unspecified
CPT/HCPCS: 80053; 80061; 85025